=== PATIENT | male | born 1970 | race American Indian/Alaskan Native ===

== ENCOUNTER 2016-05-01 21:39 | Emergency (ER) | payer MEDICAID, OTHER ==
[2016-05-01 21:40] VITALS: BMI 26.6
[2016-05-01 21:54] VITALS: RESP 18
[2016-05-02 02:11] VITALS: TEMP 98.1
--- NOTE | 2016-05-02 03:41 | C.PDOC ---
History Of Present Illness Pt was BIBEMS due to public alcohol intoxication. Time Seen by Provider: 05/01/16 23:31 Chief Complaint (Nursing): Substance Abuse History Per: Patient, EMS History/Exam Limitations: intoxication Onset/Duration Of Symptoms: Unknown (today) Current Symptoms Are (Timing): Still Present Suicide/Self Injury Attempted (Context): None Modifying Factor(s): Alcohol Severity: Severe Past Medical History Reviewed: Historical Data, Nursing Documentation, Vital Signs Vital Signs: Last Vital Signs Temp 98.1 F 05/02/16 02:10 Pulse 92 H 05/02/16 02:10 Resp 18 05/02/16 02:10 BP 114/63 05/02/16 02:10 Pulse Ox 96 05/02/16 03:41 - Medical History PMH: Asthma, Bronchitis, CAD, CHF, HTN, Hypercholesterolemia, Mitral Valve Prolapse, Pancreatitis Other PMH: Alcohol abuse - [facility] Procedures DETOXIFICATION SERVICES FOR SUBSTANCE ABUSE TREATMENT (12/24/14) INJECT/INFUSE NEC (10/19/14) MEDICATION MANAGEMENT (03/05/15) MEDS MGMT FOR SUBSTANCE ABUSE TREATMENT, OTH REPL MED (03/05/15) Family History: States: Unknown Family Hx - Social History Hx Tobacco Use: No Hx Alcohol Use: Yes Hx Substance Use: No - Immunization History Hx Tetanus Toxoid Vaccination: No Hx Influenza Vaccination: No Hx Pneumococcal Vaccination: No Review Of Systems Review Of Systems: ROS cannot be obtained secondary to pt's inabilty to answer questions. Physical Exam - Physical Exam Appears: No Acute Distress, Other (AOB, intoxicated.) Skin: Normal Color, Warm, Dry Head: Atraumatic Eye(s): bilateral: PERRL Neck: Normal ROM, No Midline Cervical Tenderness, No Step Off Deformity, Supple Chest: Symmetrical, No Deformity Cardiovascular: Rhythm Regular Respiratory: Normal Breath Sounds, No Accessory Muscle Use Gastrointestinal/Abdominal: Soft, No Tenderness Extremity: Normal ROM, No Deformity Neurological/Psych: Slow To Respond With Command, Other (Moving all extremities) Gait: Unable To Assess ED Course And Treatment O2 Sat by Pulse Oximetry: 96 Pulse Ox Interpretation: Normal Reassessment Condition: Improved ED OBSERVATION Discharge: Yes Date of observation admission: 05/01/16 Time of observation admission: 23:45 - Observation admission statement Patient is being placed in observation because:: Alcohol intoxication. - Goals of Observation Goals of observation are:: Sobriety - Progress Note Progress Note: Pt was checked every 2 hours and remained stable throughout ED stay. BP improved. Pt is now clinically sober. AAOx3. Steady gait. Disposition Counseled Patient/Family Regarding: Diagnosis, Need For Followup - Disposition Referrals: [facility] at [facility] [Outside] Disposition: HOME/ ROUTINE Disposition Time: 06:10 Condition: IMPROVED Additional Instructions: Avoid alcohol. Take your medications as prescribed. Follow up with your doctor or in the clinic. Return to the ER if you develop worsening of symptoms or if you have any other concerns. Instructions: Abuse of Alcohol (ED) - Clinical Impression Clinical Impression: Alcohol abuse with intoxication, HTN (hypertension)
[2016-05-02 06:23] VITALS: BP 118/70; PULSE 74; O2SAT 98
== END 2016-05-02 06:24 | disposition home or self-care (01) ==
LOC: C.ER 21:39
DX: F10.120 Alcohol abuse with intoxication, uncomplicated (principal); Y90.9 Presence of alcohol in blood, level not specified; I10 Essential (primary) hypertension

== ENCOUNTER 2016-05-02 08:49 | Inpatient (IN) | payer MEDICAID ==
[2016-05-02 08:54] VITALS: BMI 26.6
--- NOTE | 2016-05-02 09:42 | C.PDOC ---
History Of Present Illness 45 y/o male with hx of alcohol abuse, requesting detox. pt sts last drink last night. pt denies any physical complaints,denies cp and sob. denies any injuries or falls. Time Seen by Provider: 05/02/16 09:27 Chief Complaint (Nursing): Substance Abuse Past Medical History Reviewed: Historical Data, Nursing Documentation, Vital Signs Vital Signs: Last Vital Signs Temp 98.5 F 05/02/16 13:43 Pulse 89 05/02/16 13:43 Resp 18 05/02/16 13:43 BP 153/83 H 05/02/16 13:43 Pulse Ox 95 05/02/16 13:43 - Medical History PMH: Asthma, Bronchitis, CAD, CHF, HTN, Hypercholesterolemia, Mitral Valve Prolapse, Pancreatitis Denies: Chronic Kidney Disease Surgical History: No Surg Hx - [facility] Procedures DETOXIFICATION SERVICES FOR SUBSTANCE ABUSE TREATMENT (12/24/14) INJECT/INFUSE NEC (10/19/14) MEDICATION MANAGEMENT (03/05/15) MEDS MGMT FOR SUBSTANCE ABUSE TREATMENT, OTH REPL MED (03/05/15) Family History: States: Unknown Family Hx - Social History Hx Tobacco Use: Yes Hx Alcohol Use: Yes Hx Substance Use: No - Immunization History Hx Tetanus Toxoid Vaccination: No Hx Influenza Vaccination: No Hx Pneumococcal Vaccination: No Review Of Systems Cardiovascular: Negative for: Chest Pain Respiratory: Negative for: Cough, Shortness of Breath, SOB with Excertion Gastrointestinal: Negative for: Nausea, Vomiting, Abdominal Pain Neurological: Negative for: Weakness, Numbness Physical Exam - Physical Exam Appears: Non-toxic, No Acute Distress, Other (clear speech) Skin: Normal Color, Dry Head: Atraumatic, Normacephalic Neck: Normal ROM Chest: Symmetrical, No Deformity, No Tenderness Cardiovascular: Rhythm Regular, No Murmur Respiratory: Normal Breath Sounds, No Accessory Muscle Use, No Rales, No Rhonchi , No Stridor, No Wheezing Gastrointestinal/Abdominal: Normal Exam, Bowel Sounds, Soft, No Tenderness, No Distention, No Guarding, No Rebound Extremity: No Tenderness, No Pedal Edema, No Calf Tenderness, No Swelling Neurological/Psych: Oriented x3, Normal Speech, Normal Motor, Normal Sensation ED Course And Treatment - Laboratory Results Result Diagrams: 05/02/16 10:06 05/02/16 10:06 O2 Sat by Pulse Oximetry: 95 Medical Decision Making Medical Decision Making: pt with no acute changes on head ct. pt ambulating with normal appearing gait here in ed. will d/c back to residence with pmd f/u. 5 pm pt is medically cleared for psychitric evaluation. Disposition Discussed With : Montserrat Daly Doctor Will See Patient In The: Hospital Counseled Patient/Family Regarding: Diagnosis, Need For Followup - Disposition Disposition: HOSPITALIZED Disposition Time: 17:12 Condition: STABLE - Clinical Impression Clinical Impression: Moderate alcohol dependence
[2016-05-02 10:19] LABS: BASO # 0.1 K/uL (0.0-0.2); BASO % 1.5 % (0.0-2.0); EOS # 0.1 K/uL (0.0-0.7); HEMATOCRIT 35.6 % (35.0-51.0); LYMPH % 24.2 % (20.0-40.0); MEAN CELL VOLUME 84.7 fL (80.0-94.0); MEAN CORPUSCULAR HEMOGLOBIN 27.6 pg (27.0-31.0); MEAN CORPUSCULAR HGB CONC 32.6 g/dL (33.0-37.0); MEAN PLATELET VOLUME 8.4 fL (7.2-11.7); MONO # 0.9 K/uL (0.0-0.8); MONO % 10.7 % (0.0-10.0); RED CELL DISTRIBUTION WIDTH 17.1 % (11.5-14.5); WHITE BLOOD COUNT 8.4 K/uL (4.8-10.8)
[2016-05-02 10:21] LABS: CHLORIDE 106 mmol/L (98-107); SODIUM 146 mmol/L (132-148)
[2016-05-02 10:22] LABS: POTASSIUM 3.8 mmol/L (3.6-5.2)
[2016-05-02 10:24] LABS: ALB/GLOB RATIO 1.2 (1.0-2.1); ALKALINE PHOSPHATASE 66 U/L (38-126); ALT/SGPT 81 U/L (21-72); AST/SGOT 102 U/L (17-59); BILIRUBIN,TOTAL 0.6 mg/dL (0.2-1.3); BLOOD UREA NITROGEN 7 mg/dL (9-20); CARBON DIOXIDE 27 mmol/L (22-30); GFR AFRICAN-AMERICAN > 60; GLUCOSE,RANDOM 82 mg/dL (75-110); TOTAL PROTEIN 7.1 g/dL (6.3-8.3)
[2016-05-02 10:25] LABS: ALCOHOL SERUM 278 mg/dl (0-10); CALCIUM 8.4 mg/dl (8.6-10.4)
[2016-05-02 10:26] LABS: RBC URINE 1 /hpf (0-3); URINE BILIRUBIN NEGATIVE (NEGATIVE); URINE BLOOD NEGATIVE (NEGATIVE); URINE COLOR Amber (YELLOW); URINE GLUCOSE (UA) NORMAL (Normal); URINE HYALINE CAST 0-2 /lpf (0-2); URINE KETONE TRACE mg/dL (NEGATIVE); URINE LEUKOCYTE ESTERASE NEG Leu/uL (Negative); URINE PROTEIN 2+ mg/dL (NEGATIVE); WBC URINE 1 /hpf (0-5)
[2016-05-02] MEDS ORDERED: Sodium Chloride 0.9% 1,000 ML IV ONE (10:46)
[2016-05-02] MEDS: Sodium Chloride 0.9% 1,000 ML IV SCH ×2 (12:00→21:51)
[2016-05-03] MEDS: Sodium Chloride 0.9% 1,000 ML IV SCH (06:48)
[2016-05-03] MEDS: Multiple Vitamins Tab PO SCH (09:35)
--- NOTE | 2016-05-03 18:34 | CP.PCM.CON ---
<Magdaleno Briggs - Last Filed: 05/03/16 18:20> History of Present Illness - History of Present Illness History of Present Illness: HPI: 45M PMHx CHF, HTN and CAD presented to detox for ETOH use. Patient currently under treatment for ETOH and medicine is consulted for management of CHF and HTN. Patient is currently not seen by any doctor and not taking any medications. Patient said he had cath and stress test done when he was 19, and was told he had heart failure. Patient drinks 3 pints of vodka for past 30 years on daily basis. Last drink Walter night. Currently he complains generalized weakness. He can tolerate 3 blocks of walking and 2 flights of stairs before getting SOB. Patient said his BLE gets mildly swollen intermittently. Patient also complains 8 episodes of NBNB vomiting since admission secondary to withdrawal. Currently denied shaking, orthopnea, chest pain, palpitations, abdominal pain, fever, chills. Patient had ECHO done in 2015 which showed EF of 15-20%. PMHx: see above PSHx: denied FMHx: father from heart attack at 22 y/o. mother has HTN and breast CA at 50 y/o, both sisters have breast CA at 40 y/o. 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 absent: Cough, Dyspnea - Gastrointestinal Gastrointestinal: Nausea, Vomiting. absent: Constipation, Diarrhea - Genitourinary Genitourinary: absent: Dysuria - Musculoskeletal Musculoskeletal: absent: Tingling - Integumentary Integumentary: absent: Dry Skin - Neurological Neurological: Weakness Past Patient History - Infectious Disease Hx of Infectious Diseases: None - Tetanus Immunizations Tetanus Immunization: Unknown - Past Medical History & Family History Past Medical History?: Yes - Past Social History Smoking Status: Heavy Smoker > 10 Cigarettes Daily - CARDIAC Hx Cardiac Disorders: Yes Hx Congestive Heart Failure: Yes Hx Hypercholesterolemia: Yes Hx Hypertension: Yes Hx Mitral Valve Prolapse: Yes - PULMONARY Hx Respiratory Disorders: Yes Hx Asthma: Yes Hx Bronchitis: Yes - NEUROLOGICAL Hx Neurological Disorder: No - HEENT Hx HEENT Problems: No - RENAL Hx Chronic Kidney Disease: No - ENDOCRINE/METABOLIC Hx Endocrine Disorders: No - HEMATOLOGICAL/ONCOLOGICAL Hx Blood Disorders: No - INTEGUMENTARY Hx Dermatological Problems: No - MUSCULOSKELETAL/RHEUMATOLOGICAL Hx Falls: No - GASTROINTESTINAL Hx Gastrointestinal Disorders: Yes Hx Pancreatitis: Yes - GENITOURINARY/GYNECOLOGICAL Hx Genitourinary Disorders: No - PSYCHIATRIC Hx Substance Use: Yes - SURGICAL HISTORY Hx Surgeries: Yes Other/Comment: Hx Left wrist surgery for cyst removal - ANESTHESIA Hx Anesthesia: Yes Hx Anesthesia Reactions: No Hx Malignant Hyperthermia: No Has any member of the family had a problem w/ anesthesia?: No Meds Allergies/Adverse Reactions: Allergies Allergy/AdvReac Type Severity Reaction Status Date / Time No Known Allergies Allergy Verified 05/02/16 10:00 - Medications Medications: Current Medications Carvedilol (Coreg) 6.25 mg PO Q12 [facility] Clonidine HCl (Catapres) 0.1 mg PO Q8H PRN PRN Reason: Withdrawal Symptoms Last Admin: 05/03/16 06:15 Dose: 0.1 mg Folic Acid (Folic Acid) 1 mg PO DAILY [facility] Last Admin: 05/03/16 09:35 Dose: 1 mg Hydroxyzine HCl (Atarax) 25 mg PO Q8H PRN PRN Reason: Anxiety Last Admin: 05/02/16 18:44 Dose: 25 mg Influenza Virus Vaccine (Afluria) 45 mcg IM .ONCE ONE Stop: 05/05/16 10:01 Lisinopril (Zestril) 10 mg PO DAILY [facility] Lorazepam (Ativan) 1 mg PO Q6H PRN PRN Reason: Withdrawal Symptoms Last Admin: 05/03/16 14:30 Dose: 1 mg Lorazepam (Ativan) 2 mg PO Q4 [facility] PRN Reason: Taper Stop: 05/08/16 07:44 Last Admin: 05/03/16 16:00 Dose: 2 mg Multivitamins (Hexavitamin) 1 tab PO DAILY [facility] Last Admin: 05/03/16 09:35 Dose: 1 tab Pneumococcal Polyvalent Vaccine (Pneumovax 23 Vaccine) 0.5 ml IM .ONCE ONE Stop: 05/05/16 10:01 Thiamine HCl (Vitamin B1 Tab) 50 mg PO DAILY [facility] Last Admin: 05/03/16 09:41 Dose: Not Given Trazodone HCl (Desyrel) 50 mg PO HS PRN PRN Reason: Insomnia Last Admin: 05/02/16 21:01 Dose: 50 mg Physical Exam - Constitutional Appears: Non-toxic, No Acute Distress - Head Exam Head Exam: NORMAL INSPECTION, NORMOCEPHALIC - Eye Exam Eye Exam: Normal appearance Pupil Exam: NORMAL ACCOMODATION - ENT Exam ENT Exam: Mucous Membranes Moist - Respiratory Exam Respiratory Exam: Clear to Auscultation Bilateral, NORMAL BREATHING PATTERN. absent: Rhonchi, Wheezes - Cardiovascular Exam Cardiovascular Exam: REGULAR RHYTHM, +S1, +S2. absent: Gallop, JVD, Rubs - GI/Abdominal Exam GI & Abdominal Exam: Normal Bowel Sounds, Soft. absent: Tenderness - Neurological Exam Neurological exam: Alert, Oriented x3 - Psychiatric Exam Psychiatric exam: Normal Affect, Normal Mood - Skin Skin Exam: Dry, Intact Results - Vital Signs Recent Vital Signs: Last Vital Signs Temp 97.9 F 05/03/16 16:16 Pulse 57 L 05/03/16 16:16 Resp 18 05/03/16 16:16 BP 160/107 H 05/03/16 16:16 Pulse Ox 98 05/03/16 16:16 - Labs Result Diagrams: 05/02/16 10:06 05/02/16 10:06 Assessment & Plan - Assessment and Plan (Free Text) Assessment: CHF 11/2015 ECHO showed 15-20% EF per report. Cardio Dr. Yañez consulted, help appreciated. Coreg 6.25mg PO BID. Lisinopril 10mg PO daily. F/U A1c. Transaminitis Likely secondary to ETOH. F/U CMP. Anemia F/U B12, folate and iron studies. HTN See plan for CHF. HLD Crestor 5mg PO HS. F/U lipid panel. ETOH use disorder Management as per psych. <Johan Santos - Last Filed: 05/03/16 20:57> Meds - Medications Medications: Current Medications Carvedilol (Coreg) 6.25 mg PO Q12 [facility] Last Admin: 05/03/16 19:25 Dose: 6.25 mg Clonidine HCl (Catapres) 0.1 mg PO Q8H PRN PRN Reason: Withdrawal Symptoms Last Admin: 05/03/16 06:15 Dose: 0.1 mg Folic Acid (Folic Acid) 1 mg PO DAILY [facility] Last Admin: 05/03/16 09:35 Dose: 1 mg Hydroxyzine HCl (Atarax) 25 mg PO Q8H PRN PRN Reason: Anxiety Last Admin: 05/02/16 18:44 Dose: 25 mg Influenza Virus Vaccine (Afluria) 45 mcg IM .ONCE ONE Stop: 05/05/16 10:01 Lisinopril (Zestril) 10 mg PO DAILY [facility] Lorazepam (Ativan) 1 mg PO Q6H PRN PRN Reason: Withdrawal Symptoms Last Admin: 05/03/16 14:30 Dose: 1 mg Lorazepam (Ativan) 2 mg PO Q4 [facility] PRN Reason: Taper Stop: 05/08/16 07:44 Last Admin: 05/03/16 16:00 Dose: 2 mg Multivitamins (Hexavitamin) 1 tab PO DAILY [facility] Last Admin: 05/03/16 09:35 Dose: 1 tab Pneumococcal Polyvalent Vaccine (Pneumovax 23 Vaccine) 0.5 ml IM .ONCE ONE Stop: 05/05/16 10:01 Rosuvastatin Calcium (Crestor) 5 mg PO HS [facility] Thiamine HCl (Vitamin B1 Tab) 50 mg PO DAILY [facility] Last Admin: 05/03/16 09:41 Dose: Not Given Trazodone HCl (Desyrel) 50 mg PO HS PRN PRN Reason: Insomnia Last Admin: 05/02/16 21:01 Dose: 50 mg Results - Vital Signs Recent Vital Signs: Last Vital Signs Temp 98 F 05/03/16 20:03 Pulse 118 H 05/03/16 20:03 Resp 18 05/03/16 20:03 BP 145/93 H 05/03/16 20:03 Pulse Ox 97 05/03/16 20:03 - Labs Result Diagrams: 05/02/16 10:06 05/02/16 10:06 Attending/Attestation - Attestation I have personally seen and examined this patient.: Yes I have fully participated in the care of the patient.: Yes I have reviewed all pertinent clinical information: Yes Notes (Text): Patient admitted for ETOH detox, has history of htn and CHF, medical service being consulted for management; Patient reports getting short of breath on walking 3 blocks; otherwise appears comfortable on exam, no JVD, lungs clear; Reports not having used cocaine in years despite positive urine tox last month; Patient was admitted in 11/2015 with hypertensive urgency; echo done at the time showed dilated cardiomyopathy with EF 15-20%; patient reports also having had coronary angiogram done many years ago that was reportedly unremarkable; Cardiomyopathy likely induced by ETOH and/or cocaine abuse; however, may still need workup for CAD; further, he may be candidate for lifevest until he can get ICD placed; Not currently in heart failure but will start meds to optimize cardiac status; HTN uncontrolled, hasn't been taking any meds recently; -start coreg 6.25 mg bid, lisinopril 10 mg daily -chlorthalidone 25 mg daily -avoid prn clonidine unless SBP persistently > 165 -low dose crestor -cardiology consult for lifevest -check A1c, lipid panel 05/03/16 20:41
[2016-05-04] MEDS: Multiple Vitamins Tab PO SCH (10:20)
[2016-05-04 10:40] LABS: BASO # 0.1 K/uL (0.0-0.2); BASO % 1.1 % (0.0-2.0); EOS # 0.2 K/uL (0.0-0.7); EOS % 1.9 % (0.0-4.0); HEMATOCRIT 38.5 % (35.0-51.0); LYMPH # 1.4 K/uL (1.0-4.3); LYMPH % 16.3 % (20.0-40.0); MEAN CELL VOLUME 84.8 fL (80.0-94.0); MEAN CORPUSCULAR HEMOGLOBIN 27.2 pg (27.0-31.0); MEAN PLATELET VOLUME 8.9 fL (7.2-11.7); MONO # 0.5 K/uL (0.0-0.8); NRBC % 0.1 % (0.0-2.0); RED CELL DISTRIBUTION WIDTH 17.5 % (11.5-14.5); WHITE BLOOD COUNT 8.6 K/uL (4.8-10.8)
[2016-05-04 10:46] LABS: CHLORIDE 98 mmol/L (98-107); SODIUM 135 mmol/L (132-148)
[2016-05-04 10:47] LABS: POTASSIUM 4.1 mmol/L (3.6-5.2)
[2016-05-04 10:48] LABS: IRON 61 ug/dL (49-181)
[2016-05-04 10:49] LABS: ALB/GLOB RATIO 1.1 (1.0-2.1); ALKALINE PHOSPHATASE 63 U/L (38-126); AST/SGOT 50 U/L (17-59); BLOOD UREA NITROGEN 14 mg/dL (9-20); CARBON DIOXIDE 25 mmol/L (22-30); GFR AFRICAN-AMERICAN > 60; GLUCOSE,RANDOM 90 mg/dL (75-110); TOTAL PROTEIN 7.7 g/dL (6.3-8.3)
[2016-05-04 10:50] LABS: ALT/SGPT 59 U/L (21-72); CALCIUM 9.7 mg/dl (8.6-10.4)
[2016-05-04 11:18] LABS: CHOLESTEROL 394 mg/dL (0-199)
[2016-05-04 11:55] LABS: FOLATE 10.9 ng/mL
--- NOTE | 2016-05-04 14:22 | CP.PCM.PN ---
Subjective - Date & Time of Evaluation Date of Evaluation: 05/05/15 Time of Evaluation: 10:00 - Subjective Subjective: PGY2 on medicine Dr. Santos: Pt seen and examined at bedside. Pt complains mild lightheadedness this morning. No other complaints at this time. Objective - Vital Signs/Intake and Output Vital Signs (last 24 hours): Temp Pulse Resp BP Pulse Ox 97.2 F L 89 20 135/92 H 97 05/04/16 13:54 05/04/16 13:54 05/04/16 13:54 05/04/16 13:54 05/04/16 13:54 - Medications Medications: Current Medications Carvedilol (Coreg) 6.25 mg PO Q12 [facility] Last Admin: 05/04/16 10:20 Dose: 6.25 mg Chlorthalidone (Hygroton) 25 mg PO DAILY [facility] Last Admin: 05/04/16 10:21 Dose: 25 mg Clonidine HCl (Catapres) 0.1 mg PO Q8H PRN PRN Reason: Withdrawal Symptoms Last Admin: 05/04/16 05:13 Dose: 0.1 mg Folic Acid (Folic Acid) 1 mg PO DAILY [facility] Last Admin: 05/04/16 10:20 Dose: 1 mg Hydroxyzine HCl (Atarax) 25 mg PO Q8H PRN PRN Reason: Anxiety Last Admin: 05/02/16 18:44 Dose: 25 mg Influenza Virus Vaccine (Afluria) 45 mcg IM .ONCE ONE Stop: 05/05/16 10:01 Lisinopril (Zestril) 10 mg PO DAILY [facility] Last Admin: 05/04/16 10:21 Dose: 10 mg Lorazepam (Ativan) 1 mg PO Q6H PRN PRN Reason: Withdrawal Symptoms Last Admin: 05/03/16 14:30 Dose: 1 mg Lorazepam (Ativan) 2 mg PO Q4 [facility] PRN Reason: Taper Stop: 05/08/16 07:44 Last Admin: 05/04/16 12:45 Dose: 2 mg Multivitamins (Hexavitamin) 1 tab PO DAILY [facility] Last Admin: 05/04/16 10:20 Dose: 1 tab Pneumococcal Polyvalent Vaccine (Pneumovax 23 Vaccine) 0.5 ml IM .ONCE ONE Stop: 05/05/16 10:01 Rosuvastatin Calcium (Crestor) 5 mg PO HS [facility] Last Admin: 05/03/16 21:12 Dose: 5 mg Thiamine HCl (Vitamin B1 Tab) 50 mg PO DAILY [facility] Last Admin: 05/04/16 10:21 Dose: 50 mg Trazodone HCl (Desyrel) 50 mg PO HS PRN PRN Reason: Insomnia Last Admin: 05/03/16 21:13 Dose: 50 mg - Labs Labs: 05/04/16 10:31 05/04/16 10:31 - Constitutional Appears: Non-toxic, No Acute Distress - Head Exam Head Exam: NORMAL INSPECTION, NORMOCEPHALIC - Eye Exam Eye Exam: Normal appearance Pupil Exam: NORMAL ACCOMODATION - Respiratory Exam Respiratory Exam: Clear to Ausculation Bilateral, NORMAL BREATHING PATTERN. absent: Rhonchi, Wheezes - Cardiovascular Exam Cardiovascular Exam: REGULAR RHYTHM, +S1, +S2. absent: Gallop, Rubs - GI/Abdominal Exam GI & Abdominal Exam: Soft, Normal Bowel Sounds - Extremities Exam Extremities Exam: absent: Pedal Edema - Neurological Exam Neurological Exam: Alert, Awake, Oriented x3 - Psychiatric Exam Psychiatric exam: Normal Mood - Skin Skin Exam: Intact Assessment and Plan - Assessment and Plan (Free Text) Assessment: CHF 11/2015 ECHO showed 15-20% EF per report. Cardio Dr. Yañez consulted, help appreciated. Coreg 6.25mg PO BID. Lisinopril 10mg PO daily. Per Dr. Yañez, will have LifeVest fitted for patient. F/U A1c. Transaminitis Likely secondary to ETOH. Currently resolved. Continue monitoring. Anemia Resolved. TIBC decreased at 226. B12, folate, Iron and % saturation WNL. HTN See plan for CHF. HLD Crestor 5mg PO HS. Cholesterol 394, LDL 143, HDL 175. ETOH use disorder Management as per psych.
--- NOTE | 2016-05-04 17:25 | CP.PCM.CON ---
Past Patient History - Infectious Disease Hx of Infectious Diseases: None - Tetanus Immunizations Tetanus Immunization: Unknown - Past Medical History & Family History Past Medical History?: Yes - Past Social History Smoking Status: Heavy Smoker > 10 Cigarettes Daily - CARDIAC Hx Cardiac Disorders: Yes Hx Congestive Heart Failure: Yes Hx Hypercholesterolemia: Yes Hx Hypertension: Yes Hx Mitral Valve Prolapse: Yes - PULMONARY Hx Respiratory Disorders: Yes Hx Asthma: Yes Hx Bronchitis: Yes - NEUROLOGICAL Hx Neurological Disorder: No - HEENT Hx HEENT Problems: No - RENAL Hx Chronic Kidney Disease: No - ENDOCRINE/METABOLIC Hx Endocrine Disorders: No - HEMATOLOGICAL/ONCOLOGICAL Hx Blood Disorders: No - INTEGUMENTARY Hx Dermatological Problems: No - MUSCULOSKELETAL/RHEUMATOLOGICAL Hx Falls: No - GASTROINTESTINAL Hx Gastrointestinal Disorders: Yes Hx Pancreatitis: Yes - GENITOURINARY/GYNECOLOGICAL Hx Genitourinary Disorders: No - PSYCHIATRIC Hx Substance Use: Yes - SURGICAL HISTORY Hx Surgeries: Yes Other/Comment: Hx Left wrist surgery for cyst removal - ANESTHESIA Hx Anesthesia: Yes Hx Anesthesia Reactions: No Hx Malignant Hyperthermia: No Has any member of the family had a problem w/ anesthesia?: No Meds Allergies/Adverse Reactions: Allergies Allergy/AdvReac Type Severity Reaction Status Date / Time No Known Allergies Allergy Verified 05/02/16 10:00 - Medications Medications: Current Medications Carvedilol (Coreg) 6.25 mg PO Q12 [facility] Last Admin: 05/04/16 10:20 Dose: 6.25 mg Chlorthalidone (Hygroton) 25 mg PO DAILY [facility] Last Admin: 05/04/16 10:21 Dose: 25 mg Clonidine HCl (Catapres) 0.1 mg PO Q8H PRN PRN Reason: Withdrawal Symptoms Last Admin: 05/04/16 05:13 Dose: 0.1 mg Folic Acid (Folic Acid) 1 mg PO DAILY [facility] Last Admin: 05/04/16 10:20 Dose: 1 mg Hydroxyzine HCl (Atarax) 25 mg PO Q8H PRN PRN Reason: Anxiety Last Admin: 05/04/16 15:52 Dose: 25 mg Influenza Virus Vaccine (Afluria) 45 mcg IM .ONCE ONE Stop: 05/05/16 10:01 Lisinopril (Zestril) 10 mg PO DAILY [facility] Last Admin: 05/04/16 10:21 Dose: 10 mg Lorazepam (Ativan) 1 mg PO Q6H PRN PRN Reason: Withdrawal Symptoms Last Admin: 05/03/16 14:30 Dose: 1 mg Lorazepam (Ativan) 2 mg PO Q4 [facility] PRN Reason: Taper Stop: 05/08/16 07:44 Last Admin: 05/04/16 15:52 Dose: 2 mg Multivitamins (Hexavitamin) 1 tab PO DAILY [facility] Last Admin: 05/04/16 10:20 Dose: 1 tab Pneumococcal Polyvalent Vaccine (Pneumovax 23 Vaccine) 0.5 ml IM .ONCE ONE Stop: 05/05/16 10:01 Rosuvastatin Calcium (Crestor) 5 mg PO HS [facility] Last Admin: 05/03/16 21:12 Dose: 5 mg Thiamine HCl (Vitamin B1 Tab) 50 mg PO DAILY [facility] Last Admin: 05/04/16 10:21 Dose: 50 mg Trazodone HCl (Desyrel) 50 mg PO HS PRN PRN Reason: Insomnia Last Admin: 05/03/16 21:13 Dose: 50 mg Results - Vital Signs Recent Vital Signs: Last Vital Signs Temp 98.7 F 05/04/16 15:52 Pulse 86 05/04/16 15:52 Resp 20 05/04/16 15:52 BP 143/94 H 05/04/16 15:52 Pulse Ox 97 05/04/16 15:52 - Labs Result Diagrams: 05/04/16 10:31 05/04/16 10:31 Labs: Laboratory Results - last 24 hr 05/04/16 10:31 WBC 8.6 RBC 4.53 Hgb 12.3 Hct 38.5 MCV 84.8 MCH 27.2 MCHC 32.0 L RDW 17.5 H Plt Count 399 MPV 8.9 Neut % (Auto) 74.7 Lymph % (Auto) 16.3 L [place] % (Auto) 6.0 Eos % (Auto) 1.9 Baso % (Auto) 1.1 Neut # 6.4 Lymph # 1.4 [place] # 0.5 Eos # 0.2 Baso # 0.1 Sodium 135 Potassium 4.1 Chloride 98 Carbon Dioxide 25 Anion Gap 16 BUN 14 Creatinine 1.0 Est GFR ( Amer) > 60 Est GFR (Non-Af Amer) > 60 Random Glucose 90 Calcium 9.7 Iron 61 TIBC 226 L % Saturation 27 Total Bilirubin 1.0 AST 50 ALT 59 Alkaline Phosphatase 63 Total Protein 7.7 Albumin 4.0 Globulin 3.7 Albumin/Globulin Ratio 1.1 Triglycerides 73 D Cholesterol 394 H LDL Cholesterol Direct 143 H HDL Cholesterol 175 H Vitamin B12 709 Folate 10.9
--- NOTE | 2016-05-04 19:18 | PCM.PSYCH ---
Initial Psychiatric Evaluation - Initial Psychiatric Evaluation Legal Status: Capacity Chief Complaint (in patient's own words): I need to get sober. Patient's Reaction to Hospitalization: I'm glad I can get help. History of Present Illness and Precipitating Events: Pt is a single male who lives with his mother, and one of his children. Pt started drinking alcohol at age 15 and it almost immediately became a problem. Pt's longest period of sobriety was when he was at the [employer] Pt denies use or abuse of any other substances. Pt's father before the pt was born. Pt has 2 older sisters. Pt went up to 12th grade. 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 Pt's older sister is schizophrenic. All 8 of pt's maternal uncles are alcoholics. Pt has no history. Pt was arrested for theft, but is now off probation. Pt. has never been hospitalized in a psych. facility, but has been treated for depression. Pt has hypertension and congestive heart failure. Current Medications: Active Medications Generic Name Dose Route Start Last Admin Trade Name William PRN Reason Stop Dose Admin Carvedilol 6.25 mg 05/03/16 18:15 05/04/16 10:20 Coreg PO 6.25 mg Q12 BETINA Administration Chlorthalidone 25 mg 05/04/16 10:00 05/04/16 10:21 Hygroton PO 25 mg DAILY BETINA Administration Clonidine HCl 0.1 mg 05/02/16 18:00 05/04/16 05:13 Catapres PO 0.1 mg Q8H PRN Administration Withdrawal Symptoms Folic Acid 1 mg 05/03/16 10:00 05/04/16 10:20 Folic Acid PO 1 mg DAILY BETINA Administration Hydroxyzine HCl 25 mg 05/02/16 18:04 05/04/16 15:52 Atarax PO 25 mg Q8H PRN Administration Anxiety Influenza Virus Vaccine 45 mcg 05/05/16 10:00 Afluria IM 05/05/16 10:01 .ONCE ONE Lisinopril 10 mg 05/04/16 10:00 05/04/16 10:21 Zestril PO 10 mg DAILY BETINA Administration Lorazepam 1 mg 05/02/16 17:59 05/03/16 14:30 Ativan PO 1 mg Q6H PRN Administration Withdrawal Symptoms Lorazepam 2 mg 05/03/16 07:45 05/04/16 15:52 Ativan PO 05/08/16 07:44 2 mg Q4 BETINA Administration Taper Multivitamins 1 tab 05/03/16 10:00 05/04/16 10:20 Hexavitamin PO 1 tab DAILY BETINA Administration Pneumococcal Polyvalent Vaccine 0.5 ml 05/05/16 10:00 Pneumovax 23 Vaccine IM 05/05/16 10:01 .ONCE ONE Rosuvastatin Calcium 5 mg 05/03/16 22:00 05/03/16 21:12 Crestor PO 5 mg HS BETINA Administration Thiamine HCl 50 mg 05/03/16 10:00 05/04/16 10:21 Vitamin B1 Tab PO 50 mg DAILY BETINA Administration Trazodone HCl 50 mg 05/02/16 18:01 05/03/16 21:13 Desyrel PO 50 mg HS PRN Administration Insomnia Past Psychiatric History - Past Psychiatric History Prior Professional Help: See HPI Pertinent Medical Hx (Current Medical&Sleep Prob, Allergies): Allergies Allergy/AdvReac Type Severity Reaction Status Date / Time No Known Allergies Allergy Verified 05/02/16 10:00 Atorvastatin [Lipitor] 20 mg PO DAILY #14 tab 03/12/16 Lisinopril [Zestril] 20 mg PO DAILY #14 tab 03/12/16 Metoprolol Tartrate [Lopressor] 12.5 mg PO Q12 #14 tab 03/12/16 amLODIPine [Norvasc] 10 mg PO DAILY #14 tab 03/12/16 hydroCHLOROthiazide [Microzide] 12.5 mg PO DAILY #14 cap 03/12/16 Aspirin [Aspirin Chewable] 81 mg PO DAILY 03/22/16 Carvedilol [Coreg] 12.5 mg PO DAILY 03/22/16 Famotidine [Pepcid] 20 mg PO Q12 #20 tab 04/21/16 Metoclopramide [Reglan] 10 mg PO Q8 #6 tab 04/21/16 Ondansetron [Zofran] 4 mg PO Q8H #10 tab 04/21/16 Review of Systems - Constitutional Constitutional: Malaise - EENT Eyes: UNREMARKABLE Ears: UNREMARKABLE Nose/Mouth/Throat: UNREMARKABLE - Cardiovascular Additional comments: CHF and HTN - Respiratory Respiratory: Dyspnea - Gastrointestinal Gastrointestinal: UNREMARKABLE - Genitourinary Genitourinary: UNREMARKABLE - Reproductive: Male Reproductive:Male: UNREMARKABLE - Musculoskeletal Musculoskeletal: UNREMARKABLE
--- NOTE | 2016-05-04 19:28 | PCM.PSYCH ---
Initial Psychiatric Evaluation - Initial Psychiatric Evaluation Legal Status: Capacity Chief Complaint (in patient's own words): I need to get sober. Patient's Reaction to Hospitalization: I'm glad I can get help. History of Present Illness and Precipitating Events: Pt is a single male who lives with his mother, and one of his children. Pt started drinking alcohol at age 15 and it almost immediately became a problem. Pt's longest period of sobriety was when he was at the [employer] Pt denies use or abuse of any other substances. Pt's father before the pt was born. Pt has 2 older sisters. Pt went up to 12th grade. 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 Pt's older sister is schizophrenic. All 8 of pt's maternal uncles are alcoholics. Pt has no history. Pt was arrested for theft, but is now off probation. Pt. has never been hospitalized in a psych. facility, but has been treated for depression. Pt has hypertension and congestive heart failure. Current Medications: Active Medications Generic Name Dose Route Start Last Admin Trade Name William PRN Reason Stop Dose Admin Carvedilol 6.25 mg 05/03/16 18:15 05/04/16 10:20 Coreg PO 6.25 mg Q12 BETINA Administration Chlorthalidone 25 mg 05/04/16 10:00 05/04/16 10:21 Hygroton PO 25 mg DAILY BETINA Administration Clonidine HCl 0.1 mg 05/02/16 18:00 05/04/16 05:13 Catapres PO 0.1 mg Q8H PRN Administration Withdrawal Symptoms Folic Acid 1 mg 05/03/16 10:00 05/04/16 10:20 Folic Acid PO 1 mg DAILY BETINA Administration Hydroxyzine HCl 25 mg 05/02/16 18:04 05/04/16 15:52 Atarax PO 25 mg Q8H PRN Administration Anxiety Influenza Virus Vaccine 45 mcg 05/05/16 10:00 Afluria IM 05/05/16 10:01 .ONCE ONE Lisinopril 10 mg 05/04/16 10:00 05/04/16 10:21 Zestril PO 10 mg DAILY BETINA Administration Lorazepam 1 mg 05/02/16 17:59 05/03/16 14:30 Ativan PO 1 mg Q6H PRN Administration Withdrawal Symptoms Lorazepam 2 mg 05/03/16 07:45 05/04/16 15:52 Ativan PO 05/08/16 07:44 2 mg Q4 BETINA Administration Taper Multivitamins 1 tab 05/03/16 10:00 05/04/16 10:20 Hexavitamin PO 1 tab DAILY BETINA Administration Pneumococcal Polyvalent Vaccine 0.5 ml 05/05/16 10:00 Pneumovax 23 Vaccine IM 05/05/16 10:01 .ONCE ONE Rosuvastatin Calcium 5 mg 05/03/16 22:00 05/03/16 21:12 Crestor PO 5 mg HS BETINA Administration Thiamine HCl 50 mg 05/03/16 10:00 05/04/16 10:21 Vitamin B1 Tab PO 50 mg DAILY BETINA Administration Trazodone HCl 50 mg 05/02/16 18:01 05/03/16 21:13 Desyrel PO 50 mg HS PRN Administration Insomnia Past Psychiatric History - Past Psychiatric History Prior Professional Help: See HPI Pertinent Medical Hx (Current Medical&Sleep Prob, Allergies): Allergies Allergy/AdvReac Type Severity Reaction Status Date / Time No Known Allergies Allergy Verified 05/02/16 10:00 Atorvastatin [Lipitor] 20 mg PO DAILY #14 tab 03/12/16 Lisinopril [Zestril] 20 mg PO DAILY #14 tab 03/12/16 Metoprolol Tartrate [Lopressor] 12.5 mg PO Q12 #14 tab 03/12/16 amLODIPine [Norvasc] 10 mg PO DAILY #14 tab 03/12/16 hydroCHLOROthiazide [Microzide] 12.5 mg PO DAILY #14 cap 03/12/16 Aspirin [Aspirin Chewable] 81 mg PO DAILY 03/22/16 Carvedilol [Coreg] 12.5 mg PO DAILY 03/22/16 Famotidine [Pepcid] 20 mg PO Q12 #20 tab 04/21/16 Metoclopramide [Reglan] 10 mg PO Q8 #6 tab 04/21/16 Ondansetron [Zofran] 4 mg PO Q8H #10 tab 04/21/16 Review of Systems - Constitutional Constitutional: Malaise - EENT Eyes: UNREMARKABLE Ears: UNREMARKABLE Nose/Mouth/Throat: UNREMARKABLE - Cardiovascular Additional comments: CHF and HTN - Respiratory Respiratory: Dyspnea - Gastrointestinal Gastrointestinal: UNREMARKABLE - Genitourinary Genitourinary: UNREMARKABLE - Reproductive: Male Reproductive:Male: UNREMARKABLE - Musculoskeletal Musculoskeletal: Arthralgias, Myalgias - Integumentary Integumentary: UNREMARKABLE - Neurological Neurological: UNREMARKABLE - Psychiatric Psychiatric: Anxiety Mental Status Examination - Personal Presentation Personal Presentation: Looks older than stated age - Affect Affect: Constricted - Motor Activity Motor Activity: Calm - Reliability in Providing Information Reliability in Providing Information: Good - Speech Speech: Organized - Mood Mood: Anxious - Formal Thought Process Formal Thought Process: No Impairment - Cognitive Functions Orientation: Person, Place, Situation, Time Sensorium: Alert Attention/Concentration: Attentive Abstract Thinking: [place] Estimate of Intelligence: Average Judgement: Intact, as evidence by: Good judgement Memory: Recent intact, as evidence by: Ability to recall events of the day, Remote intact, as evidenced by: Abilit to recall sig. life events - Risk Risk: Withdrawal - Strength & Assets Inventory Strength & Assets Inventory: Intelligence, Education, Employment history DSM 5 DX - DSM 5 DSM 5 Diagnosis: Alcohol withdrawal, severe. Alcohol use disorder, severe. CHF. HTN. Alcohol withdrawal, Librium taper; group milieu, recreational; individual supportive psychotherapy; CBT and [place] Alcohol use disorder; group milieu, recreational; individual supportive psychotherapy; CBT and [place] CHF as per medical consult HTN as per medical consult - Recommended/Plan of Treatment Projected ELOS: 5 days Prognosis: good Discharge Plan and Discharge Criteria: no acute withdrawal symptoms - Smoking Cessation Smoking Cessation Initiated: No
--- NOTE | 2016-05-04 21:25 | PCM.PYCHPN ---
Psychiatric Progress Note - Psychiatric Progress Note Patient Chief Complaint: my appetite is not very good amd I am wobbly on my feet Problems Identified/Issues Discussed: PAWS aftercare Medical Problems: nothing acute Diagnostic Results: reviewed DSM 5 Symptoms Update: asthenia Medication Change: Yes (librium taper) Medical Record Reviewed: Yes Mental Status Examination - Cognitive Function Orientation: Place, Situation, Time Memory: Intact Attention: WNL Concentration: WNL Association: WNL Fund of Knowledge: WNL - Mood Mood: Anxious - Affect Affect: Constricted - Speech Speech: Appropriate - Formal Thought Process Formal Thought Process: No Impairment - Suicidal Ideation Suicidal Ideation: No - Homicidal Ideation Homicidal Ideation: No Goal/Treatment Plan - Goal/Treatment Plan Need for Continued Stay: Remain at risks for inpatient hospitalization, Discharge may exacerbated symptoms, Severe functional impairment Progress Toward Problem(s) and Goals/Treatment Plan: alcohol withdrawal librium taper groups supportive psychotherapy alcohol use disorder groups supportive psychotherapy [facility] CBT Estimated Date of D/C: 05/06/16 - Smoking Cessation Smoking Cessation Initiated: No
[2016-05-05] MEDS: Multiple Vitamins Tab PO SCH (09:05)
--- NOTE | 2016-05-05 09:15 | CP.PCM.PN ---
Subjective - Date & Time of Evaluation Date of Evaluation: 05/05/16 Time of Evaluation: 08:00 - Subjective Subjective: Cardiology Note- Dr. Yañez' Patient was seen and examined at bedside. Patient reports no acute complaints at this time. No events overnight. Objective - Vital Signs/Intake and Output Vital Signs (last 24 hours): Temp Pulse Resp BP Pulse Ox 97.8 F 95 H 18 131/91 H 96 05/05/16 09:07 05/05/16 09:07 05/05/16 09:07 05/05/16 09:07 05/05/16 09:07 - Medications Medications: Current Medications Carvedilol (Coreg) 6.25 mg PO Q12 [facility] Last Admin: 05/05/16 09:04 Dose: 6.25 mg Chlorthalidone (Hygroton) 25 mg PO DAILY [facility] Last Admin: 05/05/16 09:04 Dose: 25 mg Clonidine HCl (Catapres) 0.1 mg PO Q8H PRN PRN Reason: Withdrawal Symptoms Last Admin: 05/04/16 05:13 Dose: 0.1 mg Folic Acid (Folic Acid) 1 mg PO DAILY [facility] Last Admin: 05/05/16 09:05 Dose: 1 mg Hydroxyzine HCl (Atarax) 25 mg PO Q8H PRN PRN Reason: Anxiety Last Admin: 05/04/16 15:52 Dose: 25 mg Influenza Virus Vaccine (Afluria) 45 mcg IM .ONCE ONE Stop: 05/05/16 10:01 Lisinopril (Zestril) 10 mg PO DAILY [facility] Last Admin: 05/05/16 09:05 Dose: 10 mg Lorazepam (Ativan) 1 mg PO Q6H PRN PRN Reason: Withdrawal Symptoms Last Admin: 05/03/16 14:30 Dose: 1 mg Lorazepam (Ativan) 1 mg PO Q4 [facility] PRN Reason: Taper Stop: 05/08/16 07:44 Last Admin: 05/05/16 09:04 Dose: 1 mg Multivitamins (Hexavitamin) 1 tab PO DAILY [facility] Last Admin: 05/05/16 09:05 Dose: 1 tab Pneumococcal Polyvalent Vaccine (Pneumovax 23 Vaccine) 0.5 ml IM .ONCE ONE Stop: 05/05/16 10:01 Rosuvastatin Calcium (Crestor) 5 mg PO HS [facility] Last Admin: 05/04/16 21:05 Dose: 5 mg Thiamine HCl (Vitamin B1 Tab) 50 mg PO DAILY [facility] Last Admin: 05/05/16 09:05 Dose: 50 mg Trazodone HCl (Desyrel) 50 mg PO HS PRN PRN Reason: Insomnia Last Admin: 05/03/16 21:13 Dose: 50 mg - Labs Labs: 05/04/16 10:31 05/04/16 10:31 - Constitutional Appears: Non-toxic, No Acute Distress - Head Exam Head Exam: ATRAUMATIC, NORMAL INSPECTION, NORMOCEPHALIC - Eye Exam Pupil Exam: NORMAL ACCOMODATION, PERRL - ENT Exam ENT Exam: Mucous Membranes Moist - Respiratory Exam Respiratory Exam: Clear to Ausculation Bilateral, NORMAL BREATHING PATTERN. absent: Prolonged Expiratory Phase, Rales, Rhonchi, Wheezes - Cardiovascular Exam Cardiovascular Exam: REGULAR RHYTHM, +S1, +S2 - GI/Abdominal Exam GI & Abdominal Exam: Soft, Normal Bowel Sounds. absent: Tenderness, Diminished Bowel Sounds, Hypoactive Bowel Sounds, Pulsatile Mass - Extremities Exam Extremities Exam: Normal Capillary Refill, Normal Inspection - Neurological Exam Neurological Exam: Alert, Awake, Oriented x3 - Psychiatric Exam Psychiatric exam: Normal Affect, Normal Mood - Skin Skin Exam: Dry, Intact, Normal Color, Warm Assessment and Plan (1) Chronic systolic heart failure Assessment & Plan: Echo- 11/19/15- LV is mildly dilated. LV systolic function is severely impaired. EF is 15-20%. LA mildly dilated. Continue Coreg 6.25mg PO Q12h, Chlorthalidone 25mg PO Daily, Lisinopril 10mg PO Daily Patient will need a life vest as prophylaxis against sudden cardiac . Patient was instructed to followup with Dr. Yañez outpatient for likely ICD placement. case and plan discussed with Dr. Yañez. Status: Acute
[2016-05-05] MEDS ORDERED: Influenza Virus Vaccine 45 mcg/0.5 ml Syr IM ONE (10:00)
[2016-05-05] MEDS ORDERED: Pneumococcal 23-Valent Vaccine IM ONE (10:00)
[2016-05-05 10:16] LABS: BASO # 0.1 K/uL (0.0-0.2); BASO % 1.2 % (0.0-2.0); EOS # 0.2 K/uL (0.0-0.7); EOS % 2.3 % (0.0-4.0); LYMPH # 1.6 K/uL (1.0-4.3); LYMPH % 17.1 % (20.0-40.0); MEAN CELL VOLUME 84.5 fL (80.0-94.0); MEAN CORPUSCULAR HEMOGLOBIN 27.7 pg (27.0-31.0); MEAN CORPUSCULAR HGB CONC 32.8 g/dL (33.0-37.0); MEAN PLATELET VOLUME 9.7 fL (7.2-11.7); MONO # 0.6 K/uL (0.0-0.8); MONO % 5.9 % (0.0-10.0); RED CELL DISTRIBUTION WIDTH 16.7 % (11.5-14.5); WHITE BLOOD COUNT 9.4 K/uL (4.8-10.8)
[2016-05-05 10:26] LABS: CHLORIDE 99 mmol/L (98-107); SODIUM 135 mmol/L (132-148)
[2016-05-05 10:27] LABS: POTASSIUM 3.6 mmol/L (3.6-5.2)
[2016-05-05 10:29] LABS: ALB/GLOB RATIO 1.1 (1.0-2.1); ALKALINE PHOSPHATASE 59 U/L (38-126); ALT/SGPT 69 U/L (21-72); AST/SGOT 73 U/L (17-59); BILIRUBIN,TOTAL 0.9 mg/dL (0.2-1.3); BLOOD UREA NITROGEN 14 mg/dL (9-20); CALCIUM 9.2 mg/dl (8.6-10.4); CARBON DIOXIDE 25 mmol/L (22-30); GFR AFRICAN-AMERICAN > 60; GLUCOSE,RANDOM 124 mg/dL (75-110); TOTAL PROTEIN 7.5 g/dL (6.3-8.3)
--- NOTE | 2016-05-05 10:43 | CP.PCM.PN ---
Subjective - Date & Time of Evaluation Date of Evaluation: 05/05/16 Time of Evaluation: 07:45 - Subjective Subjective: Internal medicine progress note for Dr. Maddie Plummer, PGY-1 Pt S & E at bedside. Pt complaining of lightheadedness and dizziness upon standing up, reports that he got lightheaded when in the bathroom overnight, had to stabilize himself on the floor before getting up. Denies N/V/F/C, SOB, CP, abdominal pain, is tolerating a diet- asked if he can have work note for limitations. Objective - Vital Signs/Intake and Output Vital Signs (last 24 hours): Temp Pulse Resp BP Pulse Ox 97.8 F 95 H 18 131/91 H 96 05/05/16 09:07 05/05/16 09:07 05/05/16 09:07 05/05/16 09:07 05/05/16 09:07 - Medications Medications: Current Medications Carvedilol (Coreg) 6.25 mg PO Q12 [facility] Last Admin: 05/05/16 09:04 Dose: 6.25 mg Chlorthalidone (Hygroton) 25 mg PO DAILY [facility] Last Admin: 05/05/16 09:04 Dose: 25 mg Clonidine HCl (Catapres) 0.1 mg PO Q8H PRN PRN Reason: Withdrawal Symptoms Last Admin: 05/04/16 05:13 Dose: 0.1 mg Folic Acid (Folic Acid) 1 mg PO DAILY [facility] Last Admin: 05/05/16 09:05 Dose: 1 mg Hydroxyzine HCl (Atarax) 25 mg PO Q8H PRN PRN Reason: Anxiety Last Admin: 05/04/16 15:52 Dose: 25 mg Lisinopril (Zestril) 10 mg PO DAILY [facility] Last Admin: 05/05/16 09:05 Dose: 10 mg Lorazepam (Ativan) 1 mg PO Q6H PRN PRN Reason: Withdrawal Symptoms Last Admin: 05/03/16 14:30 Dose: 1 mg Lorazepam (Ativan) 1 mg PO Q4 BETINA PRN Reason: Taper Stop: 05/08/16 07:44 Last Admin: 05/05/16 09:04 Dose: 1 mg Multivitamins (Hexavitamin) 1 tab PO DAILY [facility] Last Admin: 05/05/16 09:05 Dose: 1 tab Rosuvastatin Calcium (Crestor) 5 mg PO HS [facility] Last Admin: 05/04/16 21:05 Dose: 5 mg Thiamine HCl (Vitamin B1 Tab) 50 mg PO DAILY [facility] Last Admin: 05/05/16 09:05 Dose: 50 mg Trazodone HCl (Desyrel) 100 mg PO HS PRN PRN Reason: Insomnia - Labs Labs: 05/05/16 10:09 05/05/16 10:09 - Constitutional Appears: Non-toxic, No Acute Distress - Head Exam Head Exam: ATRAUMATIC, NORMAL INSPECTION, NORMOCEPHALIC - Eye Exam Eye Exam: EOMI, Normal appearance, PERRL Pupil Exam: NORMAL ACCOMODATION, PERRL - ENT Exam ENT Exam: Mucous Membranes Moist, Normal Exam - Neck Exam Neck Exam: Full ROM, Normal Inspection - Respiratory Exam Respiratory Exam: Clear to Ausculation Bilateral, NORMAL BREATHING PATTERN. absent: Rales, Rhonchi, Wheezes - Cardiovascular Exam Cardiovascular Exam: REGULAR RHYTHM, +S1, +S2 - GI/Abdominal Exam GI & Abdominal Exam: Soft, Normal Bowel Sounds. absent: Tenderness - Extremities Exam Extremities Exam: Normal Inspection. absent: Pedal Edema, Tenderness - Back Exam Back Exam: Full ROM, NORMAL INSPECTION - Neurological Exam Neurological Exam: Alert, Awake, CN II-XII Intact, Oriented x3 - Psychiatric Exam Psychiatric exam: Normal Affect, Normal Mood - Skin Skin Exam: Dry, Intact, Normal Color, Warm Assessment and Plan - Assessment and Plan (Free Text) Assessment: CHF 11/2015 ECHO showed 15-20% EF per report. Coreg 6.25mg PO BID. Lisinopril 10mg PO daily. A1c 4.9 [facility] Cardio following- [facility] pending Transaminitis Likely secondary to ETOH. Currently resolved. Continue monitoring. Anemia - resolved TIBC decreased at 226. Iron and % saturation WNL. B12 709 Folate 10.9 HTN See plan for CHF. HLD Crestor 5mg PO HS. Cholesterol 392, LDL 143, HDL 175. ETOH use disorder Management as per psych. Dispo: Awaiting life[facility] DW cardio re: work restrictions FU orthostatic VS DW attending
--- NOTE | 2016-05-05 15:06 | PCM.PYCHPN ---
Psychiatric Progress Note - Psychiatric Progress Note Patient Chief Complaint: "Not sleeping too good" Problems Identified/Issues Discussed: Pt was seen, chart reviewed and case discussed. Psychiatric education and support given. Pt was treated here 8 months ago for alcohol use disorder and has returned for relapse. At this time, pt reports detox is going well, however had difficulty sleeping the last few nights. Pt's plan is to attend [facility] immediately following discharge. Medication Change: Yes (librium taper) Medical Record Reviewed: Yes Mental Status Examination - Cognitive Function Orientation: Place, Situation, Time Memory: Intact Attention: WNL Concentration: WNL Association: WNL Fund of Knowledge: WNL - Mood Mood: Anxious - Affect Affect: Constricted - Speech Speech: Appropriate - Formal Thought Process Formal Thought Process: No Impairment - Suicidal Ideation Suicidal Ideation: No - Homicidal Ideation Homicidal Ideation: No Goal/Treatment Plan - Goal/Treatment Plan Need for Continued Stay: Remain at risks for inpatient hospitalization, Discharge may exacerbated symptoms, Severe functional impairment Progress Toward Problem(s) and Goals/Treatment Plan: 1. Alcohol withdrawal - Follow ativan taper protocol -Supportive psychotherapy, CBT, [place] -Continue group activities 2. Insomnia -increase trazodone to 100mg PO QHS Estimated Date of D/C: 05/06/16
[2016-05-06] MEDS: Multiple Vitamins Tab PO SCH (10:11)
--- NOTE | 2016-05-06 11:02 | CP.PCM.PN ---
Addendum entered and electronically signed by Sylvia Plummer DO 05/06/16 16:22: Pt with systolic CHF. Original Note: <Sylvia Plummer - Last Filed: 05/06/16 12:51> Subjective - Date & Time of Evaluation Date of Evaluation: 05/06/16 Time of Evaluation: 09:20 - Subjective Subjective: Internal medicine progress note for Hospitalist service-Sylvia Plummer, PGY-1 Pt S & E at bedside. Pt feels much improved today, states that his gait is better, his dizziness is improving, has not felt unbalanced or had falls over last 24H. Denies N/V/F/C, SOB, CP, abdominal pain, slept well, is tolerating diet. Pt asking for work limitation note again. Was told limitations would come from cardiology. Objective - Vital Signs/Intake and Output Vital Signs (last 24 hours): Temp Pulse Resp BP Pulse Ox 97.3 F L 93 H 16 118/77 99 05/06/16 09:00 05/06/16 09:00 05/06/16 09:00 05/06/16 09:00 05/06/16 09:00 - Medications Medications: Current Medications Carvedilol (Coreg) 6.25 mg PO Q12 [facility] Last Admin: 05/06/16 10:11 Dose: 6.25 mg Chlorthalidone (Hygroton) 25 mg PO DAILY [facility] Last Admin: 05/06/16 10:11 Dose: 25 mg Clonidine HCl (Catapres) 0.1 mg PO Q8H PRN PRN Reason: Withdrawal Symptoms Last Admin: 05/04/16 05:13 Dose: 0.1 mg Folic Acid (Folic Acid) 1 mg PO DAILY [facility] Last Admin: 05/06/16 10:11 Dose: 1 mg Hydroxyzine HCl (Atarax) 25 mg PO Q8H PRN PRN Reason: Anxiety Last Admin: 05/04/16 15:52 Dose: 25 mg Lisinopril (Zestril) 10 mg PO DAILY [facility] Last Admin: 05/06/16 10:11 Dose: 10 mg Lorazepam (Ativan) 1 mg PO Q6H PRN PRN Reason: Withdrawal Symptoms Last Admin: 05/06/16 10:11 Dose: 1 mg Lorazepam (Ativan) 1 mg PO Q8 [facility] PRN Reason: Taper Stop: 05/08/16 07:44 Last Admin: 05/06/16 04:07 Dose: Not Given Multivitamins (Hexavitamin) 1 tab PO DAILY [facility] Last Admin: 05/06/16 10:11 Dose: 1 tab Rosuvastatin Calcium (Crestor) 5 mg PO HS [facility] Last Admin: 05/05/16 21:46 Dose: 5 mg Thiamine HCl (Vitamin B1 Tab) 50 mg PO DAILY [facility] Last Admin: 05/06/16 10:11 Dose: 50 mg Trazodone HCl (Desyrel) 100 mg PO HS PRN PRN Reason: Insomnia Last Admin: 05/05/16 21:46 Dose: 100 mg - Labs Labs: 05/05/16 10:09 05/05/16 10:09 - Constitutional Appears: Non-toxic, No Acute Distress - Head Exam Head Exam: ATRAUMATIC, NORMAL INSPECTION, NORMOCEPHALIC - Eye Exam Eye Exam: EOMI, Normal appearance, PERRL Pupil Exam: NORMAL ACCOMODATION, PERRL - ENT Exam ENT Exam: Mucous Membranes Moist, Normal Exam - Neck Exam Neck Exam: Full ROM, Normal Inspection - Respiratory Exam Respiratory Exam: Clear to Ausculation Bilateral, NORMAL BREATHING PATTERN. absent: Rales, Rhonchi, Wheezes, Stridor - Cardiovascular Exam Cardiovascular Exam: REGULAR RHYTHM, +S1, +S2 - GI/Abdominal Exam GI & Abdominal Exam: Soft, Normal Bowel Sounds. absent: Tenderness - Extremities Exam Extremities Exam: Full ROM, Normal Inspection. absent: Pedal Edema, Tenderness - Neurological Exam Neurological Exam: Alert, Awake, CN II-XII Intact, Oriented x3 - Psychiatric Exam Psychiatric exam: Normal Affect, Normal Mood - Skin Skin Exam: Dry, Intact, Normal Color, Warm Assessment and Plan - Assessment and Plan (Free Text) Assessment: CHF 11/2015 ECHO showed 15-20% EF per report. Coreg 6.25mg PO BID. Lisinopril 10mg PO daily. A1c 4.9 Orthostatic BP 111/71 lying, 118/77 sitting, 121/78 standing Cardio following- Lifevest pending Transaminitis 2/2 ETOH abuse AST 73 ALT 69 Improving Continue monitoring Anemia - resolved H/H 12.5/38 TIBC decreased at 226. Iron and % saturation WNL. B12 709 Folate 10.9 HTN See plan for CHF. HLD Crestor 5mg PO HS. Cholesterol 392, LDL 143, HDL 175. ETOH use disorder Management as per psych. Dispo: Awaiting lifevest ETOH abuse mgmt as per psych Work note restriction letter as per cardio DW attending <Justine Marinelli V - Last Filed: 05/07/16 07:58> Objective - Vital Signs/Intake and Output Vital Signs (last 24 hours): Temp Pulse Resp BP Pulse Ox 97.5 F L 71 18 117/79 95 05/07/16 06:12 05/07/16 06:12 05/07/16 06:12 05/07/16 06:12 05/07/16 06:12 - Medications Medications: Current Medications Carvedilol (Coreg) 6.25 mg PO Q12 [facility] Last Admin: 05/06/16 21:03 Dose: 6.25 mg Chlorthalidone (Hygroton) 25 mg PO DAILY [facility] Last Admin: 05/06/16 10:11 Dose: 25 mg Clonidine HCl (Catapres) 0.1 mg PO Q8H PRN PRN Reason: Withdrawal Symptoms Last Admin: 05/04/16 05:13 Dose: 0.1 mg Folic Acid (Folic Acid) 1 mg PO DAILY [facility] Last Admin: 05/06/16 10:11 Dose: 1 mg Hydroxyzine HCl (Atarax) 25 mg PO Q8H PRN PRN Reason: Anxiety Last Admin: 05/04/16 15:52 Dose: 25 mg Lisinopril (Zestril) 10 mg PO DAILY [facility] Last Admin: 05/06/16 10:11 Dose: 10 mg Lorazepam (Ativan) 1 mg PO Q6H PRN PRN Reason: Withdrawal Symptoms Last Admin: 05/06/16 10:11 Dose: 1 mg Lorazepam (Ativan) 1 mg PO Q8 [facility] PRN Reason: Taper Stop: 05/08/16 07:44 Last Admin: 05/07/16 06:23 Dose: Not Given Multivitamins (Hexavitamin) 1 tab PO DAILY [facility] Last Admin: 05/06/16 10:11 Dose: 1 tab Rosuvastatin Calcium (Crestor) 5 mg PO HS [facility] Last Admin: 05/06/16 21:03 Dose: 5 mg Thiamine HCl (Vitamin B1 Tab) 50 mg PO DAILY [facility] Last Admin: 05/06/16 10:11 Dose: 50 mg Trazodone HCl (Desyrel) 100 mg PO HS PRN PRN Reason: Insomnia Last Admin: 05/06/16 21:03 Dose: 100 mg - Labs Labs: 05/05/16 10:09 05/05/16 10:09 Attending/Attestation - Attestation I have personally seen and examined this patient.: Yes I have fully participated in the care of the patient.: Yes I have reviewed all pertinent clinical information, including history, physical exam and plan: Yes Notes (Text): This is late computer entry for 05/06/16. Patient seen, examined and case discussed with day-time resident. Patient reported mild lightheadedness today. Patient completed orthostatic blood pressures which showed he was not orthostatic. Patient seen at bedside with resident. Patient tolerating breakfast. Patient is awaiting Lifevest. Patient instructed to establish care at the [facility] ([phone]) when he is stable by psych from detox during hospitalization. Assessment/Plan 1) Chronic systolic heart failure Patient is not in acute exacerbation. Echo (11/19/15): left ventricle is mildly dilated, mild concentric left ventriculer hypertrophy, levt ventricle systolic function is severely impaired. EF: 15-20%, left atrium is mildly dilated, mitral, aortic, tricupsid valves are normal, trace to mild mitral regurgitation and trace tricupsid regurgitation Coreg 6.25mg PO bid Lisinopril 10mg PO daily Chorthalidone 25mg PO daily Crestor 5mg PO qHS Patient is off aspirin; patient is currently here for alcohol detox. Cardiology (Dr. Yañez) on board-->patient is pending lifevest for sudden cardiac prophylaxis; Life vest requires repeat echocardiogram. Awaiting repeat echocardiogram Fasting Lipid Panel: elevated total cholestrol; elevated LDL; and elevated HDL ( cardioprotective) [id number]:4.9 Patient requesting work restriction note; advised as per cardiology, but also noted patient needs to establish care with primary care doctor for further monitoring once stabilized Thyroid studies within normal 2) Transaminitis Mild transaminitis Patient is on statin, monitor LFTs while on statin Hepatitis panel is negative Order for Ab US 3) Anemia Chronic H/H stable Iron stores and saturation within normal TIBC is mildly low B12 709 Folate 10.9 Likely due to alcohol effect on bone marrow suppression 4) Hypertension Coreg 6.25mg PO bid Lisinopril 10mg PO daily Chrthalidone 25mg Po daily 5) Hyperlipidemia Crestor 5mg PO HS. Cholesterol 392, LDL 143, and HDL 175 (cardioprotective) Note: Patient is on statin while mild transaminitis; monitor 6) ETOH use disorder Ativan taper (Day 4) PRN Ativan on board Vitamin B1 100mg PO daily Folic 1mg PO daily MVI 1 tab PO daily
--- NOTE | 2016-05-06 13:37 | CP.PCM.PN ---
Subjective - Date & Time of Evaluation Date of Evaluation: 05/06/16 Time of Evaluation: 13:15 - Subjective Subjective: Cardiology Note- Dr. Yañez' service Patient was seen and examined at bedside. Patient reports no acute complaints at this time. No events overnight per nursing. Discussed instructions with patient again to followup as outpatient with Dr. Yañez in his [facility] office. Nursing reports that the [employer] public relations representative was here yesterday but has not come back with the Life Vest. Objective - Vital Signs/Intake and Output Vital Signs (last 24 hours): Temp Pulse Resp BP Pulse Ox 97.3 F L 93 H 16 118/77 99 05/06/16 09:00 05/06/16 09:00 05/06/16 09:00 05/06/16 09:00 05/06/16 09:00 - Medications Medications: Current Medications Carvedilol (Coreg) 6.25 mg PO Q12 [facility] Last Admin: 05/06/16 10:11 Dose: 6.25 mg Chlorthalidone (Hygroton) 25 mg PO DAILY [facility] Last Admin: 05/06/16 10:11 Dose: 25 mg Clonidine HCl (Catapres) 0.1 mg PO Q8H PRN PRN Reason: Withdrawal Symptoms Last Admin: 05/04/16 05:13 Dose: 0.1 mg Folic Acid (Folic Acid) 1 mg PO DAILY [facility] Last Admin: 05/06/16 10:11 Dose: 1 mg Hydroxyzine HCl (Atarax) 25 mg PO Q8H PRN PRN Reason: Anxiety Last Admin: 05/04/16 15:52 Dose: 25 mg Lisinopril (Zestril) 10 mg PO DAILY [facility] Last Admin: 05/06/16 10:11 Dose: 10 mg Lorazepam (Ativan) 1 mg PO Q6H PRN PRN Reason: Withdrawal Symptoms Last Admin: 05/06/16 10:11 Dose: 1 mg Lorazepam (Ativan) 1 mg PO Q8 [facility] PRN Reason: Taper Stop: 05/08/16 07:44 Last Admin: 05/06/16 13:31 Dose: 1 mg Multivitamins (Hexavitamin) 1 tab PO DAILY [facility] Last Admin: 05/06/16 10:11 Dose: 1 tab Rosuvastatin Calcium (Crestor) 5 mg PO HS [facility] Last Admin: 05/05/16 21:46 Dose: 5 mg Thiamine HCl (Vitamin B1 Tab) 50 mg PO DAILY [facility] Last Admin: 05/06/16 10:11 Dose: 50 mg Trazodone HCl (Desyrel) 100 mg PO HS PRN PRN Reason: Insomnia Last Admin: 05/05/16 21:46 Dose: 100 mg - Labs Labs: 05/05/16 10:09 05/05/16 10:09 - Constitutional Appears: Non-toxic, No Acute Distress - Head Exam Head Exam: ATRAUMATIC, NORMAL INSPECTION, NORMOCEPHALIC - Eye Exam Pupil Exam: NORMAL ACCOMODATION, PERRL - ENT Exam ENT Exam: Mucous Membranes Moist - Respiratory Exam Respiratory Exam: Clear to Ausculation Bilateral, NORMAL BREATHING PATTERN. absent: Prolonged Expiratory Phase, Rales, Rhonchi, Wheezes - Cardiovascular Exam Cardiovascular Exam: REGULAR RHYTHM, +S1, +S2 - GI/Abdominal Exam GI & Abdominal Exam: Soft, Normal Bowel Sounds. absent: Tenderness, Diminished Bowel Sounds, Hyperactive Bowel Sounds, Hypoactive Bowel Sounds - Extremities Exam Extremities Exam: Normal Capillary Refill, Normal Inspection - Neurological Exam Neurological Exam: Alert, Awake, Oriented x3 - Psychiatric Exam Psychiatric exam: Normal Affect, Normal Mood - Skin Skin Exam: Dry, Intact, Normal Color, Warm Assessment and Plan (1) Chronic systolic heart failure Assessment & Plan: Dilated Cardiomyopathy Echo- 11/19/15- LV is mildly dilated. LV systolic function is severely impaired. EF is 15-20%. LA mildly dilated. Continue Coreg 6.25mg PO Q12h, Chlorthalidone 25mg PO Daily, Lisinopril 10mg PO Daily Patient was instructed to followup with Dr. Yañez outpatient for possible ICD placement. Will repeat echo, as required as per [employer] public relations representative. Discussed with patient about work limitations. case and plan discussed with Dr. Yañez. Status: Acute Status: Acute
[2016-05-06 14:06] VITALS: RESP 18
--- NOTE | 2016-05-06 15:57 | PCM.PYCHPN ---
Psychiatric Progress Note - Psychiatric Progress Note Patient seen today, length of contact: 15 minutes Patient Chief Complaint: "I feel a lot better" Problems Identified/Issues Discussed: Pt was seen, chart reviewed and case discussed. At this time, pt states he is feeling much better, sleep has improved. Reports minimal withdrawal symptoms. Denies chest pain, shortness of breath, suicidal ideation, homicidal ideation, and hallucinations. Aftercare plan: [facility] Psychoeducation and support given. Medication Change: No Medical Record Reviewed: Yes Mental Status Examination - Cognitive Function Orientation: Place, Situation, Time Memory: Intact Attention: WNL Concentration: WNL Association: WNL Fund of Knowledge: WNL - Mood Mood: Anxious - Affect Affect: Constricted - Speech Speech: Appropriate - Formal Thought Process Formal Thought Process: No Impairment - Suicidal Ideation Suicidal Ideation: No - Homicidal Ideation Homicidal Ideation: No Goal/Treatment Plan - Goal/Treatment Plan Need for Continued Stay: Remain at risks for inpatient hospitalization, Discharge may exacerbated symptoms, Severe functional impairment Progress Toward Problem(s) and Goals/Treatment Plan: 1. Alcohol withdrawal - Follow ativan taper protocol -Supportive psychotherapy, CBT, NM -Continue group activities 2. Insomnia -trazodone to 100mg PO QHS Estimated Date of D/C: 05/07/16
--- NOTE | 2016-05-07 10:01 | CP.PCM.PN ---
Subjective - Date & Time of Evaluation Date of Evaluation: 05/07/16 Time of Evaluation: 07:35 - Subjective Subjective: Cardiology Note- Dr. Yañez' service Patient was seen and examined at bedside. Patient reports no acute complaints at this time. No events overnight. Objective - Vital Signs/Intake and Output Vital Signs (last 24 hours): Temp Pulse Resp BP Pulse Ox 97.5 F L 79 18 142/82 98 05/07/16 08:45 05/07/16 08:45 05/07/16 08:45 05/07/16 08:45 05/07/16 08:45 - Medications Medications: Current Medications Carvedilol (Coreg) 6.25 mg PO Q12 [facility] Last Admin: 05/06/16 21:03 Dose: 6.25 mg Chlorthalidone (Hygroton) 25 mg PO DAILY [facility] Last Admin: 05/06/16 10:11 Dose: 25 mg Clonidine HCl (Catapres) 0.1 mg PO Q8H PRN PRN Reason: Withdrawal Symptoms Last Admin: 05/04/16 05:13 Dose: 0.1 mg Folic Acid (Folic Acid) 1 mg PO DAILY [facility] Last Admin: 05/06/16 10:11 Dose: 1 mg Hydroxyzine HCl (Atarax) 25 mg PO Q8H PRN PRN Reason: Anxiety Last Admin: 05/04/16 15:52 Dose: 25 mg Lisinopril (Zestril) 10 mg PO DAILY [facility] Last Admin: 05/06/16 10:11 Dose: 10 mg Lorazepam (Ativan) 1 mg PO Q6H PRN PRN Reason: Withdrawal Symptoms Last Admin: 05/06/16 10:11 Dose: 1 mg Lorazepam (Ativan) 1 mg PO Q24H [facility] PRN Reason: Taper Stop: 05/08/16 07:44 Last Admin: 05/07/16 06:23 Dose: Not Given Multivitamins (Hexavitamin) 1 tab PO DAILY [facility] Last Admin: 05/06/16 10:11 Dose: 1 tab Rosuvastatin Calcium (Crestor) 5 mg PO HS [facility] Last Admin: 05/06/16 21:03 Dose: 5 mg Thiamine HCl (Vitamin B1 Tab) 50 mg PO DAILY [facility] Last Admin: 05/06/16 10:11 Dose: 50 mg Trazodone HCl (Desyrel) 100 mg PO HS PRN PRN Reason: Insomnia Last Admin: 05/06/16 21:03 Dose: 100 mg - Labs Labs: 05/05/16 10:09 05/05/16 10:09 - Constitutional Appears: Non-toxic, No Acute Distress - Head Exam Head Exam: ATRAUMATIC, NORMAL INSPECTION, NORMOCEPHALIC - Eye Exam Pupil Exam: NORMAL ACCOMODATION, PERRL - ENT Exam ENT Exam: Mucous Membranes Moist - Respiratory Exam Respiratory Exam: Clear to Ausculation Bilateral, NORMAL BREATHING PATTERN. absent: Rales, Rhonchi, Wheezes, Respiratory Distress - Cardiovascular Exam Cardiovascular Exam: REGULAR RHYTHM, +S1, +S2 - GI/Abdominal Exam GI & Abdominal Exam: Soft, Normal Bowel Sounds. absent: Tenderness, Diminished Bowel Sounds, Hypoactive Bowel Sounds - Extremities Exam Extremities Exam: Normal Capillary Refill, Normal Inspection - Neurological Exam Neurological Exam: Alert, Awake, Oriented x3 - Psychiatric Exam Psychiatric exam: Normal Affect, Normal Mood - Skin Skin Exam: Dry, Intact, Normal Color, Warm Assessment and Plan (1) Chronic systolic heart failure Assessment & Plan: Dilated Cardiomyopathy Echo- 11/19/15- LV is mildly dilated. LV systolic function is severely impaired. EF is 15-20%. LA mildly dilated. Continue Coreg 6.25mg PO Q12h, Chlorthalidone 25mg PO Daily, Lisinopril 10mg PO Daily Patient was instructed to followup with Dr. Yañez outpatient Echo- 05/07/16- normal LV systolic function. Diastolic dysfunction. Trace MR. Trace TR. Dilated LA. EF 52% Patient will not need a lifevest at this time. case and plan discussed with Dr. Yañez. Status: Acute
--- NOTE | 2016-05-07 10:26 | US ---
HISTORY: transaminitis COMPARISON: None. TECHNIQUE: Sonographic evaluation of the abdomen. FINDINGS: LIVER: Measures 17.3 cm. Normal echogenicity of the liver parenchyma. No mass. No intrahepatic bile duct dilatation. GALLBLADDER: Unremarkable. No gallstones. COMMON BILE DUCT: Measures 3 mm. No stones. No dilatation. PANCREAS: Mildly hypoechoic. Questionable significance. Please correlate with laboratory evaluation to rule out pancreatitis. No peripancreatic fluid. RIGHT KIDNEY: Measures 11.1cm. Normal echogenicity. No calculus, mass, or hydronephrosis. LEFT KIDNEY: Measures 10.7cm. Normal echogenicity. No calculus, mass, or hydronephrosis. SPLEEN: Normal in size and contour. No mass. AORTA: No aneurysmal dilatation. IVC: Unremarkable. OTHER FINDINGS: None. IMPRESSION: Mildly hypoechoic pancreas, questionable significance. No peripancreatic fluid. Please correlate with laboratory evaluation to rule out pancreatitis.
[2016-05-07] MEDS: Multiple Vitamins Tab PO SCH (10:34)
--- NOTE | 2016-05-07 10:56 | CARD ---
APPROVED REPORT EXAM: Two-dimensional and M-mode echocardiogram with Doppler and color Doppler. Other Information Quality : GoodRhythm : INDICATION Dizziness and Vertigo Dyspnea Syncope Congestive Heart Failure ALCOHOL ABUSE RISK FACTORS Hypertension M-Mode DIMENSIONS RVDd2.66 (2.1-3.2cm)Left Atrium (MM)4.49 (2.5-4.0cm) IVSd1.44 (0.7-1.1cm)Aortic Root3.08 (2.2-3.7cm) LVDd6.25 (4.0-5.6cm)Aortic Cusp Exc.2.19 (1.5-2.0cm) PWd1.37 (0.7-1.1cm)FS (%) 28 % LVDs4.53 (2.0-3.8cm)LVEF (%)52 (>50%) Aortic Valve AoV Peak Bjhzweej981.5cm/Pamela Peak GR.8mmHg Mitral Valve MV E Unblauuo46.5cm/sMV A Efbeyafl28.0cm/sE/A ratio0.7 TDI E/Lateral E'0.0E/Medial E'0.0 Tricuspid Valve TR Peak Iudjnppc180jg/sTR Peak Gr.[id number] LEFT VENTRICLE The left ventricle is normal size. There is normal left ventricular wall thickness. The left ventricular function is normal. The left ventricular ejection fraction is within the normal range. There is normal LV segmental wall motion. Transmitral Doppler flow pattern is abnormal. RIGHT VENTRICLE The right ventricle is normal size. ATRIA The left atrium is mildly dilated. The right atrium size is normal. AORTIC VALVE The aortic valve is normal in structure. MITRAL VALVE Mitral regurgitation is trace. TRICUSPID VALVE There is trace tricuspid regurgitation. <Conclusion> Normal LV systolic function. Diastolic dysfunction. Trace MR. Trace TR. Dilated LA.
--- NOTE | 2016-05-07 11:34 | PCM.PYCHDC ---
Mental Status Examination - Mental Status Examination Orientation: Person, Place, Situation, Time Memory: Intact Mood: Neutral Affect: Broad Speech: Appropriate Attention: WNL Concentration: WNL Association: WNL Fund of Knowledge: WNL Formal Thought Process: No Impairment Suicidal Ideation: No Current Homicidal Ideation?: No Discharge Summary - Discharge Note Reason for Hospitalization: Alcohol detox Consultations:: List each consultation separately and include: 1. Reason for request. 2. Findings. 3. Follow-up Consultations: medicine is consulted for CHF - help appreciated Summary of Hospital Course include:: 1. Description of specific treatment plan utilized for patients during their course of treatmen. 2. Summarize the time- course for resolution of acute symptoms and/or regressed behaviors. 3. Describe issues identified and worked on during hospitalization. 4. Describe medication utilized. 5. Describe medical problems identified and treated. 6. Reassessment of suicide risk Summary of Hospital Course: Pt seen, chart reviewed and case discussed with staff. Pt was admitted for alcohol withdrawal and placed on ativan taper. Pt feels much better and is ready for discharge. Aftercare: [facility] on 05/27 and daily AA meetings. Pt attended groups and activities IN, CBT used Ativan detox completed, responded well to treatment He was also seen and worked up extensively by medicine due to his significant CHF and they ended up clearing him. - Final Diagnosis (DSM 5) Condition upon Discharge: STABLE DSM 5: Alcohol withdrawal Alcohol use d/o - severe CHF Disposition: HOME/ ROUTINE Follow-up Treatment Plan: Continue medications below Attend aftercare: [facility] 05/27 Use relapse prevention skills Attend AA daily Return to ER if experience suicidal ideation, homicidal ideation, hallucinations Prescriptions/Medication Reconciliation: Aspirin [Aspirin Chewable] 81 mg PO DAILY #30 chew Carvedilol [Coreg] 6.25 mg PO Q12 #60 tab traZODone [Desyrel] 100 mg PO HS PRN #30 tab PRN Reason: Insomnia Chlorthalidone [Hygroton] 25 mg PO DAILY #30 tab Lisinopril [Zestril] 10 mg PO DAILY #30 tab - Smoking Cessation Smoking Cessation Medication prescribed: No - Antipsychotic Medications Pt discharged on 2 or more routine antipsychotic medications: No
--- NOTE | 2016-05-07 13:04 | CP.PCM.PN ---
Addendum entered and electronically signed by Sylvia Plummer DO 05/07/16 13:14: Pt medically stable for discharge from detox unit with instructions to continue Aspirin 81mg daily, Continue statin, continue Coreg. Addendum entered and electronically signed by Sylvia Plummer DO 05/07/16 13:09: Echo w/findings of normal LV systolic function, diastolic dysfunction, trace MR , trace TR, dilated LA. Patient does not need lifevest as per Dr. Yañez. Ok to d/c home per cardiology. Original Note: <Sylvia Plummer - Last Filed: 05/07/16 13:04> Subjective - Date & Time of Evaluation Date of Evaluation: 05/07/16 Time of Evaluation: 07:00 - Subjective Subjective: Internal medicine progress note for Hospitalist service-Sylvia Plummer, PGY-1 Pt S & E at bedside. Pt reports much improvement in symptoms- no longer dizzy, feels that gait is normal, no falls or loss of balance, no headache. Is eating/sleeping ok. Denies N/V/F/C, SOB, CP, palpitations, abdominal pain, any other complaints. Objective - Vital Signs/Intake and Output Vital Signs (last 24 hours): Temp Pulse Resp BP Pulse Ox 97.5 F L 79 18 142/82 98 05/07/16 08:45 05/07/16 08:45 05/07/16 08:45 05/07/16 08:45 05/07/16 08:45 - Medications Medications: Current Medications Aspirin (Aspirin Chewable) 81 mg PO DAILY [facility] Last Admin: 05/07/16 11:28 Dose: 81 mg Carvedilol (Coreg) 6.25 mg PO Q12 [facility] Last Admin: 05/07/16 10:34 Dose: 6.25 mg Chlorthalidone (Hygroton) 25 mg PO DAILY [facility] Last Admin: 05/07/16 10:35 Dose: 25 mg Clonidine HCl (Catapres) 0.1 mg PO Q8H PRN PRN Reason: Withdrawal Symptoms Last Admin: 05/04/16 05:13 Dose: 0.1 mg Folic Acid (Folic Acid) 1 mg PO DAILY [facility] Last Admin: 05/07/16 10:34 Dose: 1 mg Hydroxyzine HCl (Atarax) 25 mg PO Q8H PRN PRN Reason: Anxiety Last Admin: 05/04/16 15:52 Dose: 25 mg Lisinopril (Zestril) 10 mg PO DAILY [facility] Last Admin: 05/07/16 10:34 Dose: 10 mg Lorazepam (Ativan) 1 mg PO Q6H PRN PRN Reason: Withdrawal Symptoms Last Admin: 05/06/16 10:11 Dose: 1 mg Lorazepam (Ativan) 1 mg PO Q24H [facility]INA PRN Reason: Taper Stop: 05/08/16 07:44 Last Admin: 05/07/16 10:34 Dose: 1 mg Multivitamins (Hexavitamin) 1 tab PO DAILY [facility] Last Admin: 05/07/16 10:34 Dose: 1 tab Rosuvastatin Calcium (Crestor) 5 mg PO HS [facility] Last Admin: 05/06/16 21:03 Dose: 5 mg Thiamine HCl (Vitamin B1 Tab) 50 mg PO DAILY [facility] Last Admin: 05/07/16 10:34 Dose: 50 mg Trazodone HCl (Desyrel) 100 mg PO HS PRN PRN Reason: Insomnia Last Admin: 05/06/16 21:03 Dose: 100 mg - Labs Labs: 05/05/16 10:09 05/05/16 10:09 - Constitutional Appears: Non-toxic, No Acute Distress - Head Exam Head Exam: ATRAUMATIC, NORMAL INSPECTION, NORMOCEPHALIC - Eye Exam Eye Exam: EOMI, Normal appearance, PERRL Pupil Exam: NORMAL ACCOMODATION, PERRL - ENT Exam ENT Exam: Mucous Membranes Moist, Normal Exam - Neck Exam Neck Exam: Full ROM, Normal Inspection - Respiratory Exam Respiratory Exam: Clear to Ausculation Bilateral, NORMAL BREATHING PATTERN. absent: Rales, Rhonchi, Wheezes, Stridor - Cardiovascular Exam Cardiovascular Exam: REGULAR RHYTHM, +S1, +S2 - GI/Abdominal Exam GI & Abdominal Exam: Soft, Normal Bowel Sounds. absent: Tenderness - Extremities Exam Extremities Exam: Full ROM, Normal Inspection. absent: Pedal Edema, Tenderness - Back Exam Back Exam: Full ROM, NORMAL INSPECTION - Neurological Exam Neurological Exam: Alert, Awake, CN II-XII Intact, Oriented x3 - Psychiatric Exam Psychiatric exam: Normal Affect, Normal Mood - Skin Skin Exam: Dry, Intact, Normal Color, Warm Assessment and Plan - Assessment and Plan (Free Text) Assessment: CHF 11/2015 ECHO showed 15-20% EF per report. Cont Coreg 6.25mg PO BID. Lisinopril 10mg PO daily Cont crestor Started ASA daily A1c 4.9 BP 142/82 Cardio following- Lifevest pending, FU echo Transaminitis 2/2 ETOH abuse AST 73 ALT 69 Improving Ab U/S w/Mildly hypoechoic pancreas, questionable significance. No peripancreatic fluid. Please correlate with laboratory evaluation to rule out pancreatitis. Pt completing ETOH rehab, will go to outpatient rehab for ETOH abuse on 05/28 Continue monitoring Anemia - resolved H/H 12.5 TIBC decreased at 226. Iron and % saturation WNL. B12 709 Folate 10.9 HTN Cont Chlorthalidone Cont Lisinopril HLD Crestor 5mg PO HS. Cholesterol 392, LDL 143, HDL 175. ETOH use disorder Management as per psych. Dispo: Awaiting lifevest FU Echo ETOH abuse mgmt as per psych Work note restriction letter as per cardio DW attending <Justine Marinelli V - Last Filed: 05/07/16 19:35> Objective - Vital Signs/Intake and Output Vital Signs (last 24 hours): Temp Pulse Resp BP Pulse Ox 98 F 87 18 137/76 97 05/07/16 13:30 05/07/16 13:30 05/07/16 13:30 05/07/16 13:30 05/07/16 13:30 - Labs Labs: 05/05/16 10:09 05/05/16 10:09 Attending/Attestation - Attestation I have personally seen and examined this patient.: Yes I have fully participated in the care of the patient.: Yes I have reviewed all pertinent clinical information, including history, physical exam and plan: Yes Notes (Text): Patient seen, examined and case discussed with day-time resident. Patient seen at bedside. Patient denies acute symptoms. Patient completed repeat echocardiogram, wherein there was improvement in EF, and as per cardiology, will not need LifeVest at this time. Patient is medically stable. Per cardiology, patient does not need lifevest. Patient advised to follow-up at the [facility] ([phone]). Attempted to patient at home via cell and home (mother's numbers); will re- attempt: will need lisinopril and chorliathdone in addition to the aspirin, crestor, and coreg he was discharged with. Assessment/Plan 1) Chronic systolic heart failure; Cardiomyopathy Patient is not in acute exacerbation. Echo (11/19/15): left ventricle is mildly dilated, mild concentric left ventriculer hypertrophy, levt ventricle systolic function is severely impaired. EF: 15-20%, left atrium is mildly dilated, mitral, aortic, tricupsid valves are normal, trace to mild mitral regurgitation and trace tricupsid regurgitation Echo (05/07/16): normal LV systole function, diasytolic dysfunction, dilated LA Coreg 6.25mg PO bid Lisinopril 10mg PO daily Chorthalidone 25mg PO daily Crestor 5mg PO qHS Patient is off aspirin; patient is currently here for alcohol detox. Cardiology (Dr. Yañez) on board-->patient is pending lifevest for sudden cardiac prophylaxis; Life vest requires repeat echocardiogram. Awaiting repeat echocardiogram Fasting Lipid Panel: elevated total cholestrol; elevated LDL; and elevated HDL ( cardioprotective) [id number] Patient requesting work restriction note; advised as per cardiology, but also noted patient needs to establish care with primary care doctor for further monitoring once stabilized Thyroid studies within normal 2) Transaminitis Mild transaminitis Patient is on statin, monitor LFTs while on statin Hepatitis panel is negative Ab US (05/07/16): hypoechoic pancreas; patient clinically is not in acute pancreatitis 3) Anemia Chronic H/H stable Iron stores and saturation within normal TIBC is mildly low B12 709 Folate 10.9 Likely due to alcohol effect on bone marrow suppression 4) Hypertension Coreg 6.25mg PO bid Lisinopril 10mg PO daily Chrthalidone 25mg Po daily 5) Hyperlipidemia Crestor 5mg PO HS. Cholesterol 392, LDL 143, and HDL 175 (cardioprotective) Note: Patient is on statin while mild transaminitis; monitor 6) ETOH use disorder Ativan taper (Day 5) PRN Ativan on board Vitamin B1 100mg PO daily Folic 1mg PO daily MVI 1 tab PO daily
[2016-05-07 14:09] VITALS: BP 137/76; PULSE 87; TEMP 98; O2SAT 97
--- NOTE | 2016-05-08 08:25 | PCM.HF ---
Heart Failure Core Measure - Heart Failure Ejection Fraction: 40 % or Greater Left Ventricular Function to be assessed after discharge: No VAUGHN Inhibitor Prescribed: Yes Beta-Radha Prescribed: Carvedilol Contraindication/Reason for not providing: not indicated Angiotensin II Receptor Radha Prescribed: No Contraindication/Reason for not providing: not AnticoagulationTherapy for Atrial Fibrillation/Atrialflutter: No Contraindication/Reason for not providing: not indicated Aldosterone Antagonist Prescribed: No Contraindication/Reason for not providing: not indicated Hydralazine Nitrate Prescribed: No Contraindication/Reason for not providing: not indicated Implantable Cardioverter Defibrillator Therapy: No Contraindication/Reason for not providing: not indicated Cardiac Resynchronization Therapy Prescribed: No Contraindication/Reason for not providing: not indicated - Follow up Follow Up Date (must be within 7 days from discharge): 05/15/16 Follow Up Time: 09:00
== END 2016-05-07 14:05 | disposition home or self-care (01) ==
LOC: C.ER 08:49 → C.7D 17:00
PROVIDERS: ADMIT Psychiatry & Neurology Psychiatry; ATTEND Psychiatry & Neurology Psychiatry
PROC: HZ2ZZZZ Detoxification Services for Substance Abuse Treatment (ICD-10-PCS; principal; 2016-05-02)
PROC: HZ46ZZZ Group Counseling for Substance Abuse Treatment, Psychoeducation (ICD-10-PCS; 2016-05-02)
PROC: HZ59ZZZ Individual Psychotherapy for Substance Abuse Treatment, Supportive (ICD-10-PCS; 2016-05-02)
DX: F10.230 Alcohol dependence with withdrawal, uncomplicated (principal); I11.0 Hypertensive heart disease with heart failure; I50.9 Heart failure, unspecified; I42.0 Dilated cardiomyopathy; I34.1 Nonrheumatic mitral (valve) prolapse; D64.9 Anemia, unspecified; F17.210 Nicotine dependence, cigarettes, uncomplicated; I25.10 Atherosclerotic heart disease of native coronary artery without angina pectoris; J45.909 Unspecified asthma, uncomplicated; F41.8 Other specified anxiety disorders; E78.5 Hyperlipidemia, unspecified

== ENCOUNTER 2016-05-16 03:21 | Emergency (ER) | payer MEDICAID, OTHER ==
[2016-05-16 03:21] VITALS: BMI 26.6
--- NOTE | 2016-05-16 03:41 | C.PDOC ---
History Of Present Illness Patient, with a past medical history of asthma, bronchitis, CAD, CHF, pancreatitis, mitral valve prolapse, and hypertension, presents to the ED complaining of palpitations and production of green-kelly sputum for the past few days. Patient denies fever, chills, nausea, vomiting. Time Seen by Provider: 05/16/16 03:38 Chief Complaint (Nursing): Palpitations History Per: Patient History/Exam Limitations: no limitations Onset/Duration Of Symptoms: Days (few) Current Symptoms Are (Timing): Still Present Associated Symptoms: Other Severity: Mild Pain Scale Rating Of: 3 Exacerbating Factor(s): Pos: None Recent travel outside of the [place]: No Additional History Per: Patient Past Medical History Reviewed: Historical Data, Nursing Documentation, Vital Signs Vital Signs: Last Vital Signs Temp 98 F 05/16/16 03:34 Pulse 86 05/16/16 03:34 Resp 20 05/16/16 03:34 BP 147/88 05/16/16 03:34 Pulse Ox 94 L 05/16/16 04:32 - Medical History PMH: Asthma, Bronchitis, CAD, CHF, Depression, HTN, Hypercholesterolemia, Mitral Valve Prolapse, Pancreatitis - [facility] Procedures DETOXIFICATION SERVICES FOR SUBSTANCE ABUSE TREATMENT (05/02/16) GROUP REFRIGERATION ENGINE OPERATOR FOR SUBSTANCE ABUSE TREATMENT, PSYCHOEDUCATION (05/02/16) INDIV PSYCHOTHERAPY FOR SUBSTANCE ABUSE TREATMENT, SUPPORT (05/02/16) INJECT/INFUSE NEC (10/19/14) MEDICATION MANAGEMENT (03/05/15) MEDS MGMT FOR SUBSTANCE ABUSE TREATMENT, OTH REPL MED (03/05/15) Family History: States: Unknown Family Hx - Social History Hx Tobacco Use: Yes Hx Alcohol Use: Yes Hx Substance Use: Yes - Immunization History Hx Tetanus Toxoid Vaccination: No Hx Influenza Vaccination: No Hx Pneumococcal Vaccination: No Review Of Systems Constitutional: Negative for: Fever, Chills Cardiovascular: Positive for: Palpitations Gastrointestinal: Negative for: Nausea, Vomiting Physical Exam - Physical Exam Appears: Non-toxic, No Acute Distress Skin: Warm, Dry Head: Atraumatic, Normacephalic Eye(s): bilateral: PERRL, EOMI Oral Mucosa: Moist Neck: Supple Chest: Symmetrical Cardiovascular: Rhythm Regular Respiratory: No Rales, Rhonchi (scattered), No Wheezing, Other (speaking in complete sentences) Gastrointestinal/Abdominal: Soft, No Tenderness, No Guarding, No Rebound Back: No CVA Tenderness Extremity: Bilateral: Atraumatic, Normal Color And Temperature Neurological/Psych: Oriented x3 Gait: Steady ED Course And Treatment - Laboratory Results Result Diagrams: 05/16/16 04:34 05/16/16 05:32 ECG: Interpreted By Me, Viewed By Me ECG Rhythm: Sinus Rhythm (72), Nonspecific Changes O2 Sat by Pulse Oximetry: 94 Pulse Ox Interpretation: Normal - Radiology CXR: Interpreted by Me, Viewed By Me CXR Interpretation: Yes: Other (unchanged from 03/22/16). No: Infiltrates, Fracture, Pnemothorax Progress Note: Plan: Ecotrin, Labs, EKG Reevaluation Time: 05:50 Reassessment Condition: Improved Disposition Counseled Patient/Family Regarding: Studies Performed, Diagnosis, Need For Followup - Disposition Referrals: Kirill Powell MD [Staff Provider] - Disposition: HOME/ ROUTINE Disposition Time: 03:47 Condition: FAIR Prescriptions: Albuterol HFA [Ventolin HFA 90 mcg/actuation (8 g)] 2 puff IH [id number] #1 puff Azithromycin [Zithromax Tri-Theodore] 500 mg PO DAILY #1 tablet Instructions: Acute Bronchitis (ED) - Clinical Impression Clinical Impression: Bronchitis - Scribe Statement The provider has reviewed the documentation as recorded by the Scribe Melanie Laird Provider Attestation: All medical record entries made by the Scribe were at my direction and personally dictated by me. I have reviewed the chart and agree that the record accurately reflects my personal performance of the history, physical exam, medical decision making, and the department course for this patient. I have also personally directed, reviewed, and agree with the discharge instructions and disposition.
[2016-05-16 03:44] VITALS: TEMP 98; O2SAT 94
[2016-05-16] MEDS ORDERED: Aspirin 325 mg EC Tablets PO STA (03:47)
[2016-05-16] MEDS ORDERED: Aspirin 325 mg EC Tablets PO ONE (04:33)
[2016-05-16 04:38] LABS: BASO # 0.2 K/uL (0.0-0.2); BASO % 2.8 % (0.0-2.0); EOS % 0.7 % (0.0-4.0); HEMATOCRIT 35.6 % (35.0-51.0); LYMPH # 1.2 K/uL (1.0-4.3); LYMPH % 19.6 % (20.0-40.0); MEAN CELL VOLUME 84.5 fL (80.0-94.0); MEAN CORPUSCULAR HEMOGLOBIN 27.4 pg (27.0-31.0); MEAN CORPUSCULAR HGB CONC 32.4 g/dL (33.0-37.0); MEAN PLATELET VOLUME 8.3 fL (7.2-11.7); MONO # 0.3 K/uL (0.0-0.8); MONO % 4.7 % (0.0-10.0); NRBC % 0.1 % (0.0-2.0); RED CELL DISTRIBUTION WIDTH 16.8 % (11.5-14.5); WHITE BLOOD COUNT 6.1 K/uL (4.8-10.8)
[2016-05-16 05:44] LABS: CHLORIDE 100 mmol/L (98-107); POTASSIUM 4.1 mmol/L (3.6-5.2); SODIUM 141 mmol/L (132-148)
[2016-05-16 05:46] LABS: ALB/GLOB RATIO 1.5 (1.0-2.1); ALKALINE PHOSPHATASE 61 U/L (38-126); AST/SGOT 50 U/L (17-59); CARBON DIOXIDE 26 mmol/L (22-30); GFR AFRICAN-AMERICAN > 60; TOTAL PROTEIN 7.4 g/dL (6.3-8.3)
[2016-05-16 05:47] LABS: ALT/SGPT 35 U/L (21-72); BLOOD UREA NITROGEN 11 mg/dL (9-20); CALCIUM 7.9 mg/dl (8.6-10.4); GLUCOSE,RANDOM 98 mg/dL (75-110)
[2016-05-16 06:08] VITALS: BP 134/72; PULSE 79; RESP 16
--- NOTE | 2016-05-16 11:28 | RAD ---
PROCEDURE: CHEST RADIOGRAPH, 1 VIEW HISTORY: chest pain COMPARISON: Comparison made with prior chest radiograph 03/22/2016 FINDINGS: LUNGS: Technical out right heart Clear. PLEURA: No pneumothorax or pleural fluid seen. CARDIOVASCULAR: Normal. OSSEOUS STRUCTURES: No significant abnormalities. VISUALIZED UPPER ABDOMEN: Normal. OTHER FINDINGS: None. IMPRESSION: No active disease.
--- NOTE | 2016-05-18 16:27 | CARD ---
APPROVED REPORT EKG Measurement Heart [id number] <Conclusion> Normal sinus rhythm with sinus arrhythmia Moderate voltage criteria for LVH, may be normal variant T wave abnormality, consider inferolateral ischemia Prolonged QT Abnormal ECG
== END 2016-05-16 06:46 | disposition home or self-care (01) ==
LOC: C.ER 03:21
DX: J40 Bronchitis, not specified as acute or chronic (principal); Z72.0 Tobacco use

== ENCOUNTER 2017-02-12 02:04 | Emergency (ER) | payer MEDICAID ==
[2017-02-12] MEDS ORDERED: Naloxone 0.4 mg/ml Inj (Adult) IVP ONE ×4 (02:10→02:59)
[2017-02-12] MEDS ORDERED: Sodium Chloride 0.9% 1,000 ML IV ONE (02:31)
[2017-02-12 02:51] LABS: BASO # 0.1 K/uL (0.0-0.2); BASO % 2.1 % (0.0-2.0); EOS % 0.4 % (0.0-4.0); HEMOGLOBIN 12.2 g/dL (12.0-18.0); LYMPH # 2.8 K/uL (1.0-4.3); LYMPH % 41.5 % (20.0-40.0); MEAN CELL VOLUME 89.3 fL (80.0-94.0); MEAN CORPUSCULAR HEMOGLOBIN 29.7 pg (27.0-31.0); MEAN CORPUSCULAR HGB CONC 33.2 g/dL (33.0-37.0); MEAN PLATELET VOLUME 8.4 fL (7.2-11.7); MONO # 0.4 K/uL (0.0-0.8); MONO % 5.9 % (0.0-10.0); NEUT # 3.4 K/uL (1.8-7.0); NEUT % 50.1 % (50.0-75.0); NRBC % 0.1 % (0.0-2.0); RBC 4.12 Mil/uL (4.40-5.90); RED CELL DISTRIBUTION WIDTH 14.9 % (11.5-14.5); WHITE BLOOD COUNT 6.8 K/uL (4.8-10.8)
[2017-02-12] MEDS ORDERED: Naloxone 0.4 mg/ml Inj (Adult) ONE (03:00)
[2017-02-12 03:02] LABS: ALB/GLOB RATIO 1.3 (1.0-2.1); ALBUMIN 4.5 g/dL (3.5-5.0); ALT/SGPT 46 U/L (21-72); AST/SGOT 65 U/L (17-59); BLOOD UREA NITROGEN 9 mg/dL (9-20); CALCIUM 8.7 mg/dl (8.6-10.4); GFR AFRICAN-AMERICAN > 60; GFR NON-AFRICAN AMERICAN > 60
[2017-02-12 03:04] LABS: BARBITURATES, UR NEGATIVE (NEGATIVE); BENZODIAZEPINES, UR NEGATIVE (NEGATIVE); OPIATES, UR NEGATIVE (NEGATIVE); PHENCYCLIDINE, UR NEGATIVE (NEGATIVE)
--- NOTE | 2017-02-12 04:15 | C.PDOC ---
History Of Present Illness 58 year old male is brought to the ED [facility] after being found in [address] passed out. Patient has pin point pupils, was given 2.0 mg narcan intranasal by EMS. Was placed on a NRB by EMS. Upon arrival pulse ox 88% on room air with slurred speech, difficult to arouse, arousbale to painful stimuli. . Patient is given 0.2 more narcan here. Patient is unable to answer further questions. Time Seen by Provider: 02/12/17 02:29 Chief Complaint (Nursing): Substance Abuse History Per: EMS History/Exam Limitations: intoxication Onset/Duration Of Symptoms: Hrs Current Symptoms Are (Timing): Still Present Associated Symptoms: denies: Depression, Suicidal Thoughts, Suicidal Plan Recent travel outside of the [place]: No Additional History Per: EMS Past Medical History Reviewed: Historical Data, Nursing Documentation, Vital Signs Vital Signs: Last Vital Signs Temp 98 F 02/12/17 06:02 Pulse 60 02/12/17 06:02 Resp 12 02/12/17 06:02 BP 148/90 02/12/17 06:02 Pulse Ox 98 02/12/17 06:02 - Medical History PMH: No Chronic Diseases Surgical History: No Surg Hx Family History: States: Unknown Family Hx - Social History Hx Alcohol Use: Yes (alcohol on breath) Hx Substance Use: Yes (pt responded to narcan) Review Of Systems Review Of Systems: ROS cannot be obtained secondary to pt's inabilty to answer questions. Physical Exam - Physical Exam Appears: Non-toxic, Confused, Other (intoxciated ) Skin: Normal Color, Warm, Dry Head: Atraumatic, Normacephalic Eye(s): bilateral: Other (pin point) Nose: No Discharge, No Deformity Teeth: Normal Dentition Gingiva: Normal Appearing Neck: Normal ROM, Supple Chest: Symmetrical Cardiovascular: Rhythm Regular, No Murmur Respiratory: Normal Breath Sounds, No Rales, No Rhonchi, No Wheezing Gastrointestinal/Abdominal: Soft, No Tenderness, No Guarding, No Rebound Extremity: Normal ROM, No Pedal Edema, No Calf Tenderness, No Deformity, No Swelling Neurological/Psych: Other (responds to painful stimuli) ED Course And Treatment - Laboratory Results Result Diagrams: 02/12/17 02:45 02/12/17 02:45 ECG: Interpreted By Me, Viewed By Me ECG Rhythm: Sinus Rhythm Interpretation Of ECG: NSR 64 ND 176 QRS 108 QT 442 QTC 455 no ischemic changes incomplete RBBB Rate From EC O2 Sat by Pulse Oximetry: 98 (On RA) Pulse Ox Interpretation: Normal - CT Scan/US CT head Other Rad Studies (CT/US): Read By Radiologist, Radiology Report Reviewed CT/US Interpretation: EXAM: CT Head Without Intravenous Contrast. CLINICAL HISTORY: 58 years old, male; Pain; Headache and other: Overdose. TECHNIQUE: Axial computed tomography images of the head/brain without intravenous contrast. All CT scans at. this facility use one or more dose reduction techniques, viz.: automated exposure control; ma/kV. adjustment per patient size (including targeted exams where dose is matched to indication; i.e. head); . or iterative reconstruction technique. COMPARISON: No relevant prior studies available. FINDINGS: Brain: Mild atrophy. No intracranial hemorrhage. No mass. No definite edema. Ventricles: No hydrocephalus. Bones/joints: No acute fracture. Soft tissues: Unremarkable. Vasculature: Minimal atherosclerotic disease of intracranial arteries. Sinuses: Scattered minimal mucosal thickening of ethmoid sinuses. Small RIGHT maxillary. retention cyst. Mastoid air cells: No mastoid effusion. Orbits: Unremarkable as visualized. IMPRESSION: 1. No definite acute intracranial abnormality. Acute infarction may be CT occult within first 24 hours. If a focal deficit persists, consider followup CT or MRI for further evaluation. 2. Incidental/non-acute findings are described above. Medical Decision Making Medical Decision Making: Plan: * CT head * CXR * EKG * Narcan 0.2 mg * labs Pt was given multiple doses of narcan 0.2 mg with transient improvement of mental status/ etoh 559. continuous cardiac technologist. pending sobriety. ct head. Disposition - Disposition Disposition Time: 06:56 Condition: FAIR Forms: [employer] (Lao) - Clinical Impression Clinical Impression: Intoxication - Scribe Statement The provider has reviewed the documentation as recorded by the Scribe Bolivar Francisco All medical record entries made by the Scribe were at my direction and personally dictated by me. I have reviewed the chart and agree that the record accurately reflects my personal performance of the history, physical exam, medical decision making, and the department course for this patient. I have also personally directed, reviewed, and agree with the discharge instructions and disposition.
--- NOTE | 2017-02-12 04:35 | CT ---
EXAM: CT Head Without Intravenous Contrast CLINICAL HISTORY: 58 years old, male; Pain; Headache and other: Overdose TECHNIQUE: Axial computed tomography images of the head/brain without intravenous contrast. All CT scans at this facility use one or more dose reduction techniques, viz.: automated exposure control; ma/kV adjustment per patient size (including targeted exams where dose is matched to indication; i.e. head); or iterative reconstruction technique. COMPARISON: No relevant prior studies available. FINDINGS: Brain: Mild atrophy. No intracranial hemorrhage. No mass. No definite edema. Ventricles: No hydrocephalus. Bones/joints: No acute fracture. Soft tissues: Unremarkable. Vasculature: Minimal atherosclerotic disease of intracranial arteries. Sinuses: Scattered minimal mucosal thickening of ethmoid sinuses. Small RIGHT maxillary retention cyst. Mastoid air cells: No mastoid effusion. Orbits: Unremarkable as visualized. IMPRESSION: 1. No definite acute intracranial abnormality. Acute infarction may be CT occult within first 24 hours. If a focal deficit persists, consider followup CT or MRI for further evaluation. 2. Incidental/non-acute findings are described above.
--- NOTE | 2017-02-12 08:35 | RAD ---
PROCEDURE: CHEST RADIOGRAPH, 1 VIEW HISTORY: Overdosed COMPARISON: None available. FINDINGS: LUNGS: Clear. Shallow lung volumes PLEURA: No pneumothorax or pleural fluid seen. CARDIOVASCULAR: Mild cardiomegaly. Aortic knob atherosclerotic vascular calcification OSSEOUS STRUCTURES: No significant abnormalities. VISUALIZED UPPER ABDOMEN: Normal. OTHER FINDINGS: None. IMPRESSION: No acute pulmonary pathology. Bronchovascular markings top-normal. Mild cardiomegaly
[2017-02-12 11:13] VITALS: TEMP 98.4; O2SAT 97
[2017-02-12 12:31] VITALS: BP 105/63; PULSE 77; RESP 12
--- NOTE | 2017-02-13 23:34 | CARD ---
APPROVED REPORT EKG Measurement Heart [id number] [place] [id number] [id number] <Conclusion> Normal sinus rhythm Incomplete right bundle branch Poor R wave progressionblock Borderline ECG
== END 2017-02-12 13:14 | disposition home or self-care (01) ==
LOC: EDBD 02:04 → MERGE 02:04 → C.ER 02:04
DX: F10.129 Alcohol abuse with intoxication, unspecified (principal); Y90.8 Blood alcohol level of 240 mg/100 ml or more
CPT/HCPCS: 70450; 71045; 80053; 80320; 80324; 80345; 80346; 80349; 80353; 80358; 80361; 82948; 83992; 85025; 93005; 96361; 96374; 96376; 99285; J2310; J7040

== ENCOUNTER 2017-03-13 19:59 | Emergency (ER) | payer MEDICAID ==
[2017-03-13 19:59] VITALS: BMI 27.3
--- NOTE | 2017-03-13 21:17 | C.PDOC ---
History Of Present Illness 46 year old male presents to the ED c/o anterior chest wall pain for the past 2 days. Patient denies any injury, fall, trauma, SOB, headache, dizziness. Chief Complaint (Nursing): Chest Pain History Per: Patient History/Exam Limitations: no limitations Onset/Duration Of Symptoms: Days Current Symptoms Are (Timing): Still Present Quality: "Pain" Modifying Factors: None Exacerbating Factors: None Alleviating Factors: None Recent travel outside of the [place]: No Additional History Per: Patient Past Medical History Reviewed: Historical Data, Nursing Documentation, Vital Signs Vital Signs: Last Vital Signs Temp 97.9 F 03/14/17 03:29 Pulse 62 03/14/17 03:29 Resp 16 03/14/17 03:29 BP 135/73 03/14/17 03:29 Pulse Ox 99 03/14/17 04:17 - Medical History PMH: Anxiety, Asthma (as a child), CAD, CHF, Depression, HTN, Hypercholesterolemia, Pancreatitis Denies: Alzheimer's Disease, Anemia, Arthritis, Bipolar Disorder, Bronchitis , Cardia Arrhythmia, COPD, Crohn's Disease, Dementia, Diverticulitis, Emphysema , Fibromyalgia, Fractures, Gastrointestinal Ulcer, Gall Bladder Disease, HIV, Hyperthyroidism, Hypothyroidism, Kidney Stones, Migraine, Mitral Valve Prolapse , Osteoporosis, Paranoia, Parkinson's Disease, Peripheral Edema, Pneumonia, Post Traumatic Stress Disorder, Chronic Kidney Disease, Schizophrenia, Seizures , Sickle Cell Disease, Sexually Transmitted Disease, Sleep Apnea, TIA Surgical History: Coronary Stent Denies: Appendectomy, Cholecystectomy, Pacemaker - [facility] Procedures DETOXIFICATION SERVICES FOR SUBSTANCE ABUSE TREATMENT (05/02/16) GROUP WINE SPECIALIST FOR SUBSTANCE ABUSE TREATMENT, PSYCHOEDUCATION (05/02/16) INDIV PSYCHOTHERAPY FOR SUBSTANCE ABUSE TREATMENT, SUPPORT (05/02/16) INJECT/INFUSE NEC (10/19/14) MEDICATION MANAGEMENT (03/05/15) MEDS MGMT FOR SUBSTANCE ABUSE TREATMENT, OTH REPL MED (03/05/15) Family History: States: Unknown Family Hx, [place] (father of [place] at 22 y/o) - Social History Hx Tobacco Use: Yes Hx Alcohol Use: Yes Hx Substance Use: No - Immunization History Hx Tetanus Toxoid Vaccination: No Hx Influenza Vaccination: No Hx Pneumococcal Vaccination: No Review Of Systems Constitutional: Negative for: Fever, Chills Cardiovascular: Positive for: Chest Pain. Negative for: Palpitations Respiratory: Negative for: Cough, Shortness of Breath Gastrointestinal: Negative for: Nausea, Vomiting, Abdominal Pain Genitourinary: Negative for: Dysuria, Hematuria Skin: Negative for: Rash Neurological: Negative for: Weakness, Numbness Physical Exam - Physical Exam Appears: Non-toxic, No Acute Distress, Other (AOB) Skin: Normal Color, Warm, Dry Head: Atraumatic, Normacephalic Eye(s): bilateral: Normal Inspection Nose: No Discharge, No Deformity Oral Mucosa: Moist Neck: Normal ROM, Supple Chest: Symmetrical, Tenderness (left interscapular ) Cardiovascular: Rhythm Regular, No Murmur Respiratory: Normal Breath Sounds, No Rales, No Rhonchi, No Plerual Rub Gastrointestinal/Abdominal: Soft, No Tenderness, No Guarding, No Rebound Extremity: Normal ROM, No Deformity, No Swelling Neurological/Psych: Oriented x3, Normal Speech, Normal Cognition ED Course And Treatment - Laboratory Results Result Diagrams: 03/13/17 21:40 03/13/17 21:40 ECG: Interpreted By Me, Viewed By Me ECG Rhythm: Sinus Bradycardia, ST/T Changes ECG Interpretation: No Acute Changes, Abnormal Interpretation Of ECG: Sinus tachycardia, flattening of t-wavelateral keads, T- inversion III and AVF O2 Sat by Pulse Oximetry: 99 (ON RA) Pulse Ox Interpretation: Normal - Radiology CXR: Interpreted by Me, Viewed By Me CXR Interpretation: Yes: No Acute Disease, Other (normal chest film.). No: Infiltrates Medical Decision Making Medical Decision Making: Impression : Chest pain Plan: * EKG * Labs * CXR Disposition Counseled Patient/Family Regarding: Diagnosis - Disposition Referrals: [facility] [Outside] Disposition: HOME/ ROUTINE Disposition Time: 05:34 Condition: STABLE Prescriptions: Naproxen 375 mg PO TIDPC #20 tablet Instructions: Abuse of Alcohol (ED), Chest Wall Pain (ED) Forms: [facility] (Macedonian) - POA Present On Arrival: None - Clinical Impression Clinical Impression: Alcohol intoxication, Chest wall pain - Scribe Statement The provider has reviewed the documentation as recorded by the Scribe Bolivar Francisco All medical record entries made by the Scribe were at my direction and personally dictated by me. I have reviewed the chart and agree that the record accurately reflects my personal performance of the history, physical exam, medical decision making, and the department course for this patient. I have also personally directed, reviewed, and agree with the discharge instructions and disposition.
[2017-03-13 21:44] LABS: BASO # 0.1 K/uL (0.0-0.2); BASO % 1.4 % (0.0-2.0); EOS # 0.1 K/uL (0.0-0.7); EOS % 0.9 % (0.0-4.0); HEMOGLOBIN 11.9 g/dL (12.0-18.0); LYMPH # 2.9 K/uL (1.0-4.3); LYMPH % 34.4 % (20.0-40.0); MEAN CELL VOLUME 87.6 fL (80.0-94.0); MEAN CORPUSCULAR HEMOGLOBIN 30.4 pg (27.0-31.0); MEAN CORPUSCULAR HGB CONC 34.7 g/dL (33.0-37.0); MEAN PLATELET VOLUME 8.3 fL (7.2-11.7); MONO # 0.3 K/uL (0.0-0.8); MONO % 3.9 % (0.0-10.0); NEUT # 5.1 K/uL (1.8-7.0); NEUT % 59.4 % (50.0-75.0); NRBC % 0.1 % (0.0-2.0); RBC 3.9 Mil/uL (4.40-5.90); WHITE BLOOD COUNT 8.5 K/uL (4.8-10.8)
[2017-03-13 22:00] LABS: ALB/GLOB RATIO 1.3 (1.0-2.1); ALBUMIN 4.1 g/dL (3.5-5.0); ALT/SGPT 19 U/L (21-72); AST/SGOT 32 U/L (17-59); BLOOD UREA NITROGEN 12 mg/dL (9-20); CALCIUM 8.8 mg/dl (8.6-10.4); GFR AFRICAN-AMERICAN > 60; GFR NON-AFRICAN AMERICAN > 60
[2017-03-14 03:33] VITALS: O2SAT 99
[2017-03-14 05:40] VITALS: BP 122/77; PULSE 75; RESP 18; TEMP 98.1
--- NOTE | 2017-03-14 10:50 | RAD ---
HISTORY: chest pain COMPARISON: Comparison chest 05/16/2016 TECHNIQUE: Chest PA and lateral FINDINGS: LUNGS: No active pulmonary disease. PLEURA: No significant pleural effusion identified. No pneumothorax apparent. CARDIOVASCULAR: Heart size within range of normal however there is a slight left ventricular configuration. OSSEOUS STRUCTURES: Mild multilevel degenerative spondylosis of the thoracic spine. Chronic appearing anterior wedge deformities of a few mid -lower thoracic segments VISUALIZED UPPER ABDOMEN: Normal. OTHER FINDINGS: None. IMPRESSION: No active disease.
== END 2017-03-14 05:40 | disposition home or self-care (01) ==
LOC: C.ER 19:59
DX: R07.89 Other chest pain (principal); F10.129 Alcohol abuse with intoxication, unspecified; Y90.8 Blood alcohol level of 240 mg/100 ml or more; I10 Essential (primary) hypertension; E78.00 Pure hypercholesterolemia, unspecified; F17.210 Nicotine dependence, cigarettes, uncomplicated

== ENCOUNTER 2017-04-19 00:58 | Emergency (ER) | payer MEDICAID ==
[2017-04-19 00:59] VITALS: BMI 27.3
[2017-04-19 01:10] VITALS: RESP 20; TEMP 97.7; O2SAT 97
--- NOTE | 2017-04-19 01:22 | C.PDOC ---
History Of Present Illness Patient came in due to episode of chest pain ealrlier lasted for about 15 min. Presaently pain free. Also history of feeling SOB on exertion. Chief Complaint (Nursing): Chest Pain History Per: Patient History/Exam Limitations: no limitations Onset/Duration Of Symptoms: Mins Current Symptoms Are (Timing): Gone Severity: None Pain Scale Rating Of: 0 Quality: Aching Associated Symptoms: Dyspnea. denies: Nausea, Diaphoresis Alleviating Factors: denies: None, Rest, Leaning Foreward, Other Past Medical History Vital Signs: Last Vital Signs Temp 97.7 F 04/19/17 01:05 Pulse 79 04/19/17 01:15 Resp 20 04/19/17 01:05 BP 154/101 H 04/19/17 01:15 Pulse Ox 97 04/19/17 01:30 - Medical History PMH: Anxiety, Asthma (as a child), CAD, CHF, Depression, HTN, Hypercholesterolemia, Pancreatitis Denies: Alzheimer's Disease, Anemia, Arthritis, Bipolar Disorder, Bronchitis , Cardia Arrhythmia, COPD, Crohn's Disease, Dementia, Diverticulitis, Emphysema , Fibromyalgia, Fractures, Gastrointestinal Ulcer, Gall Bladder Disease, HIV, Hyperthyroidism, Hypothyroidism, Kidney Stones, Migraine, Mitral Valve Prolapse , Osteoporosis, Paranoia, Parkinson's Disease, Peripheral Edema, Pneumonia, Post Traumatic Stress Disorder, Chronic Kidney Disease, Schizophrenia, Seizures , Sickle Cell Disease, Sexually Transmitted Disease, Sleep Apnea, TIA Surgical History: Coronary Stent Denies: Appendectomy, Cholecystectomy, Pacemaker - [facility] Procedures DETOXIFICATION SERVICES FOR SUBSTANCE ABUSE TREATMENT (05/02/16) GROUP PUG MILL OPERATOR FOR SUBSTANCE ABUSE TREATMENT, PSYCHOEDUCATION (05/02/16) INDIV PSYCHOTHERAPY FOR SUBSTANCE ABUSE TREATMENT, SUPPORT (05/02/16) INJECT/INFUSE NEC (10/19/14) MEDICATION MANAGEMENT (03/05/15) MEDS MGMT FOR SUBSTANCE ABUSE TREATMENT, OTH REPL MED (03/05/15) Family History: States: Unknown Family Hx, [place] (father of [place] at 22 y/o) - Social History Hx Tobacco Use: Yes Hx Alcohol Use: Yes Hx Substance Use: No - Immunization History Hx Tetanus Toxoid Vaccination: No Hx Influenza Vaccination: No Hx Pneumococcal Vaccination: No Review Of Systems Constitutional: Negative for: Fever, Chills, Sweats Eyes: Negative for: Pain ENT: Negative for: Ear Pain, Ear Discharge, Nose Pain, Nose Discharge Cardiovascular: Positive for: Chest Pain. Negative for: Palpitations, Orthopnea , Paroxysmal Noc. Dyspnea Respiratory: Negative for: Cough, Hemoptysis Gastrointestinal: Negative for: Nausea, Vomiting, Abdominal Pain Genitourinary: Negative for: Dysuria, Frequency, Incontinence Musculoskeletal: Negative for: Neck Pain, Shoulder Pain, Arm Pain Skin: Negative for: Rash, Lesions Neurological: Negative for: Weakness, Numbness, Incoordination, Change in Speech Psych: Positive for: Other (acute alcohol ingestion). Negative for: Anxiety, Depression, Psychosis, Suicidal ideation, Withdrawal Physical Exam - Physical Exam Appears: No Acute Distress, Other (alcohol on breath) Skin: Normal Color Head: Atraumatic Nose: Normal Throat: Normal Neck: Normal Chest: Symmetrical, No Deformity, No Tenderness, No Ecchymosis, No Subcutaneous Emphysema Cardiovascular: Rhythm Regular Respiratory: Normal Breath Sounds Gastrointestinal/Abdominal: Normal Exam Back: Normal Inspection Extremity: Normal ROM ED Course And Treatment - Laboratory Results Result Diagrams: 04/19/17 01:51 04/19/17 01:51 ECG: Interpreted By Me, Viewed By Me ECG Rhythm: Sinus Rhythm, ST/T Changes ECG Interpretation: No Acute Changes Interpretation Of ECG: NSR. LVH, non-spc ST-T changes, prolonged QT interval, abnormal tracings/ Rate From EC O2 Sat by Pulse Oximetry: 97 Pulse Ox Interpretation: Normal Disposition - Disposition Disposition: ELOPEMENT - ER ONLY Disposition Time: 04:25 Condition: STABLE Forms: [facility] (Georgian) - POA Present On Arrival: None - Clinical Impression Clinical Impression: Chest pain, Alcohol abuse
[2017-04-19 01:32] VITALS: BP 154/101; PULSE 79
[2017-04-19 03:07] LABS: ALB/GLOB RATIO 1.4 (1.0-2.1); ALBUMIN 4.5 g/dL (3.5-5.0); ALT/SGPT 33 U/L (21-72); AST/SGOT 32 U/L (17-59); BLOOD UREA NITROGEN 5 mg/dL (9-20); CALCIUM 9.6 mg/dl (8.6-10.4); GFR AFRICAN-AMERICAN > 60; GFR NON-AFRICAN AMERICAN > 60
[2017-04-19 03:20] LABS: B-TYPE NATRIURETIC PEPTIDE 333 pg/mL (0-450)
[2017-04-19 03:29] LABS: BASO # 0.1 K/uL (0.0-0.2); BASO % 1.2 % (0.0-2.0); EOS # 0.1 K/uL (0.0-0.7); EOS % 1.2 % (0.0-4.0); HEMOGLOBIN 11.1 g/dL (12.0-18.0); LYMPH # 2.2 K/uL (1.0-4.3); LYMPH % 29.4 % (20.0-40.0); MEAN CELL VOLUME 87.3 fL (80.0-94.0); MEAN CORPUSCULAR HEMOGLOBIN 28.9 pg (27.0-31.0); MEAN CORPUSCULAR HGB CONC 33.1 g/dL (33.0-37.0); MEAN PLATELET VOLUME 8.4 fL (7.2-11.7); MONO # 0.5 K/uL (0.0-0.8); MONO % 6.7 % (0.0-10.0); NEUT # 4.7 K/uL (1.8-7.0); NEUT % 61.5 % (50.0-75.0); NRBC % 0.1 % (0.0-2.0); RBC 3.82 Mil/uL (4.40-5.90); RED CELL DISTRIBUTION WIDTH 16.4 % (11.5-14.5); WHITE BLOOD COUNT 7.6 K/uL (4.8-10.8)
--- NOTE | 2017-04-19 08:31 | RAD ---
HISTORY: chest pain COMPARISON: Chest x-ray 03/13/17 TECHNIQUE: Chest PA and lateral FINDINGS: LUNGS: Bilateral hilar prominence. Mild biapical pleural thickening. No focal consolidation. Please note that chest x-ray has limited sensitivity for the detection of pulmonary masses. PLEURA: No significant pleural effusion identified. No definite pneumothorax . CARDIOVASCULAR: Heart size appears within limits. Atherosclerotic calcifications of the aortic knob. OSSEOUS STRUCTURES: Degenerative changes. Chronic appearing anterior wedge deformities of a few mid -lower thoracic segments VISUALIZED UPPER ABDOMEN: Unremarkable. OTHER FINDINGS: None. IMPRESSION: Bilateral hilar prominence. Mild biapical pleural thickening. No focal consolidation effusion
--- NOTE | 2017-04-20 12:19 | CARD ---
APPROVED REPORT EKG Measurement Heart [id number] <Conclusion> Normal sinus rhythm Voltage criteria for left ventricular hypertrophy Nonspecific T wave abnormality Prolonged QT Abnormal ECG
== END 2017-04-19 04:25 | disposition left against medical advice (07) ==
LOC: C.ER 00:58
DX: F10.10 Alcohol abuse, uncomplicated (principal); R07.9 Chest pain, unspecified; Z72.0 Tobacco use

== ENCOUNTER 2017-05-28 09:30 | Observation (INO) | payer MEDICAID ==
[2017-05-28 09:51] VITALS: BMI 27.4
--- NOTE | 2017-05-28 11:02 | CT ---
PROCEDURE: CT scan brain dated 05/28/2017. . HISTORY: Syncope COMPARISON: None available. TECHNIQUE: Axial computed tomography images were obtained through the head/brain without intravenous contrast. Radiation dose: Total exam DLP = 1326.41 mGy-cm. This CT exam was performed using one or more of the following dose reduction techniques: Automated exposure control, adjustment of the mA and/or kV according to patient size, and/or use of iterative reconstruction technique. Note the examination is somewhat limited by motion artifact. FINDINGS: HEMORRHAGE: No acute parenchymal, subarachnoid nor extra-axial hemorrhage. BRAIN: There appears to be some very minimal slightly confluent low-attenuation changes seen within periventricular may represent chronic sequela of small vessel disease. No evidence of large acute infarct. Mild -moderate generalized volume loss. Minor calcified atherosclerotic plaque both cavernous carotid arteries. VENTRICLES: No obstructive hydrocephalus. CALVARIUM: Calvarium appears intact. PARANASAL SINUSES: Mild mucosal thickening seen within in the ethmoid air complex extending superiorly slightly into the inferior margin of the frontal sinus on left side. There is also minor mucosal thickening within the left chamber sphenoid sinus. Apparent old fracture deformity right lamina papyracea. MASTOID AIR CELLS: Unremarkable as visualized. No inflammatory changes. OTHER FINDINGS: None. IMPRESSION: No acute intracranial hemorrhage. . Suspect minimal chronic periventricular white matter ischemic changes. Mild to moderate generalized volume loss Old fracture deformity right lamina papyracea. Mild mucoperiosteal inflammatory changes within the aforementioned paranasal sinuses.
[2017-05-28 11:28] LABS: BASO # 0.2 K/uL (0.0-0.2); BASO % 2.6 % (0.0-2.0); EOS # 0.2 K/uL (0.0-0.7); EOS % 2.6 % (0.0-4.0); HEMOGLOBIN 12.1 g/dL (12.0-18.0); LYMPH # 1.5 K/uL (1.0-4.3); LYMPH % 25.1 % (20.0-40.0); MEAN CELL VOLUME 86.9 fL (80.0-94.0); MEAN CORPUSCULAR HEMOGLOBIN 28.9 pg (27.0-31.0); MEAN CORPUSCULAR HGB CONC 33.2 g/dL (33.0-37.0); MEAN PLATELET VOLUME 8.5 fL (7.2-11.7); MONO # 0.2 K/uL (0.0-0.8); MONO % 2.8 % (0.0-10.0); NEUT # 3.9 K/uL (1.8-7.0); NEUT % 66.9 % (50.0-75.0); RBC 4.19 Mil/uL (4.40-5.90); RED CELL DISTRIBUTION WIDTH 16.9 % (11.5-14.5); WHITE BLOOD COUNT 5.9 K/uL (4.8-10.8)
[2017-05-28 11:36] LABS: INR 0.9; PROTHROMBIN TIME 10.3 SECONDS (9.7-12.2)
[2017-05-28 11:36] LABS: BARBITURATES, UR NEGATIVE (NEGATIVE); OPIATES, UR NEGATIVE (NEGATIVE); PHENCYCLIDINE, UR NEGATIVE (NEGATIVE)
[2017-05-28 11:46] LABS: ALB/GLOB RATIO 1.1 (1.0-2.1); ALBUMIN 4.5 g/dL (3.5-5.0); ALT/SGPT 46 U/L (21-72); AST/SGOT 62 U/L (17-59); BLOOD UREA NITROGEN 12 mg/dL (9-20); CALCIUM 8.8 mg/dl (8.6-10.4); GFR AFRICAN-AMERICAN > 60; GFR NON-AFRICAN AMERICAN > 60
[2017-05-28 11:52] LABS: B-TYPE NATRIURETIC PEPTIDE 25.4 pg/mL (0-450); CK-MB 4.13 ng/mL (0.0-3.38)
[2017-05-28 11:57] LABS: BENZODIAZEPINES, UR POSITIVE (NEGATIVE)
[2017-05-28 12:36] LABS: URINE BILIRUBIN NEGATIVE (NEGATIVE); URINE CLARITY Clear (Clear); URINE COLOR YELLOW (YELLOW); URINE GLUCOSE (UA) NEGATIVE (Normal)
[2017-05-28 12:37] LABS: PH,URINE 5.5 (5.0-8.0); URINE BLOOD MODERATE (NEGATIVE); URINE LEUKOCYTE ESTERASE NEG Leu/uL (Negative); URINE PROTEIN 100 mg/dL (NEGATIVE); URINE UROBILINOGEN 0.2 mg/dL (0.2-1.0)
[2017-05-28 12:38] LABS: SQUAMOUS EPITHIAL 1 /hpf (0-5); URINE BACTERIA RARE (<OCC)
--- NOTE | 2017-05-28 12:46 | RAD ---
Chest x-ray single frontal view History: Syncope. Comparison: 04/19/2017 Findings: No focal infiltrate or effusion. Bibasilar breast shadows. Right hilar prominence. Calcification at the aortic knob. Degenerative changes in the spine. Impression: No focal infiltrate or effusion.
--- NOTE | 2017-05-28 13:34 | C.PDOC ---
History Of Present Illness 46 y/o male, w/PMhx of CHF, presents to the ER for evaluation of a syncopal episode which occurred in the morning today. Patient states that he has been drinking ETOH everyday for the past 30 years. Patient states that he does not feel well and he feels like ," he is going to soon." Chief Complaint (Nursing): Substance Abuse History Per: Patient History/Exam Limitations: no limitations Onset/Duration Of Symptoms: Days Current Symptoms Are (Timing): Gone Past Medical History Reviewed: Historical Data, Nursing Documentation, Vital Signs Vital Signs: Last Vital Signs Temp 97.6 F 05/28/17 09:35 Pulse 78 05/28/17 13:25 Resp 16 05/28/17 13:25 BP 125/79 05/28/17 13:25 Pulse Ox 100 05/28/17 13:45 - Medical History PMH: Anxiety, Asthma (as a child), CAD, CHF, Depression, HTN, Hypercholesterolemia, Pancreatitis Denies: Alzheimer's Disease, Anemia, Arthritis, Bipolar Disorder, Bronchitis , Cardia Arrhythmia, COPD, Crohn's Disease, Dementia, Diabetes, Diverticulitis, Emphysema, Fibromyalgia, Fractures, Gastrointestinal Ulcer, Gall Bladder Disease , Hepatitis, HIV, Hyperthyroidism, Hypothyroidism, Kidney Stones, Migraine, Mitral Valve Prolapse, Osteoporosis, Paranoia, Parkinson's Disease, Peripheral Edema, Pneumonia, Post Traumatic Stress Disorder, Chronic Kidney Disease, Schizophrenia, Seizures, Sickle Cell Disease, Sexually Transmitted Disease, Sleep Apnea, TIA Surgical History: Coronary Stent Denies: Appendectomy, Cholecystectomy, Pacemaker - [facility] Procedures DETOXIFICATION SERVICES FOR SUBSTANCE ABUSE TREATMENT (05/02/16) GROUP RETAIL AREA MANAGER FOR SUBSTANCE ABUSE TREATMENT, PSYCHOEDUCATION (05/02/16) INDIV PSYCHOTHERAPY FOR SUBSTANCE ABUSE TREATMENT, SUPPORT (05/02/16) INJECT/INFUSE NEC (10/19/14) MEDICATION MANAGEMENT (03/05/15) MEDS MGMT FOR SUBSTANCE ABUSE TREATMENT, OTH REPL MED (03/05/15) Family History: States: [place] (father of [place] at 22 y/o) - Social History Hx Tobacco Use: Yes Hx Alcohol Use: Yes Hx Substance Use: No (pt. denies) - Immunization History Hx Tetanus Toxoid Vaccination: No Hx Influenza Vaccination: No Hx Pneumococcal Vaccination: No Review Of Systems Except As Marked, All Systems Reviewed And Found Negative. Constitutional: Negative for: Fever, Chills Neurological: Positive for: Other (syncopal episode ( currently resolved)). Negative for: Dizziness Physical Exam - Physical Exam Appears: No Acute Distress, Other (awake, alert) Skin: Normal Color, Warm, Dry Head: Atraumatic, Normacephalic Eye(s): bilateral: Normal Inspection Nose: Normal Oral Mucosa: Moist, Other (ETOH on breath) Neck: Supple Chest: Symmetrical Cardiovascular: Rhythm Regular Respiratory: Normal Breath Sounds, No Rales, No Rhonchi, No Wheezing Extremity: Normal ROM Neurological/Psych: Oriented x3, Normal Speech ED Course And Treatment - Laboratory Results Result Diagrams: 05/28/17 11:12 05/28/17 11:12 ECG: Interpreted By Me, Viewed By Me ECG Rhythm: Sinus Rhythm Interpretation Of ECG: NSR with prolonged QT interval Rate From EC O2 Sat by Pulse Oximetry: 100 (RA) Pulse Ox Interpretation: Normal - Other Rad CXR X-Ray: Viewed By Me, Read By Radiologist Interpretation: Chest x-ray single frontal view. History: Syncope. Comparison : 04/19/2017. Findings: No focal infiltrate or effusion. Bibasilar breast shadows. Right hilar prominence. Calcification at the aortic knob. Degenerative changes in the spine. Impression: No focal infiltrate or effusion. - CT Scan/US CT-Head Other Rad Studies (CT/US): Read By Radiologist, Radiology Report Reviewed CT/US Interpretation: PROCEDURE: CT scan brain dated 05/28/2017. . HISTORY: Syncope. COMPARISON: None available. TECHNIQUE: Axial computed tomography images were obtained through the head/brain without intravenous contrast. Radiation dose: Total exam DLP = 1326.41 mGy-cm. This CT exam was performed using one or more of the following dose reduction techniques: Automated exposure control, adjustment of the mA and/or kV according to patient size, and/ or use of iterative reconstruction technique. Note the examination is somewhat limited by motion artifact. FINDINGS: HEMORRHAGE: No acute parenchymal, subarachnoid nor extra-axial hemorrhage. BRAIN: There appears to be some very minimal slightly confluent low-attenuation changes seen within periventricular may represent chronic sequela of small vessel disease. No evidence of large acute infarct. Mild -moderate generalized volume loss. Minor calcified atherosclerotic plaque both cavernous carotid arteries. VENTRICLES: No obstructive hydrocephalus. CALVARIUM: Calvarium appears intact. PARANASAL SINUSES: Mild mucosal thickening seen within in the ethmoid air complex extending superiorly slightly into the inferior margin of the frontal sinus on left side. There is also minor mucosal thickening within the left chamber sphenoid sinus. Apparent old fracture deformity right lamina papyracea. MASTOID AIR CELLS: Unremarkable as visualized. No inflammatory changes. OTHER FINDINGS: None. IMPRESSION: No acute intracranial hemorrhage. . Suspect minimal chronic periventricular white matter ischemic changes. Mild to moderate generalized volume loss. Old fracture deformity right lamina papyracea. Mild mucoperiosteal inflammatory changes within the aforementioned paranasal sinuses. Progress Note: Labs, UA, CXR, CT-Head ordered and reviewed. UTOX is significant for cocaine. ETOH level was found to be 392. Patient will be admitted to telemetry observation for syncope. - Physician Consult Information Physician Contacted: Joshua Simpson Outcome Of Conversation: accepted pt to Tele obs Disposition - Disposition Disposition: HOSPITALIZED Disposition Time: 14:24 Condition: FAIR Forms: [facility] (Vietnamese) - Clinical Impression Clinical Impression: Alcohol abuse, Drug abuse, Syncope, CHF (congestive heart failure) - PA / MORTGAGE ORIGINATOR / Resident Statement MD/DO has reviewed & agrees with the documentation as recorded. - Scribe Statement The provider has reviewed the documentation as recorded by the Antoniibe Tiki Cruz Provider Attestation All medical record entries made by the Scribe were at my direction and personally dictated by me. I have reviewed the chart and agree that the record accurately reflects my personal performance of the history, physical exam, medical decision making, and the department course for this patient. I have also personally directed, reviewed, and agree with the discharge instructions and disposition. Decision To Admit - Pt Status Changed To: Hospital Disposition Of: Observation - . Bed Request Type: Telemetry Admitting Physician: Joshua Simpson Patient Diagnosis: Alcohol abuse, Drug abuse, Syncope, CHF (congestive heart failure)
[2017-05-28] MEDS ORDERED: Folic Acid 1 MG, Multivitamin (MVI) 10 ML in Dextrose 5% In Water 1,000 ML IV ONE (18:00)
[2017-05-28] MEDS ORDERED: FOLIC ACID IV ONE (20:00)
[2017-05-28] MEDS ORDERED: MULTIVITAMIN IV ONE (20:00)
[2017-05-28] MEDS ORDERED: SODIUM CHLORIDE IV ONE (20:00)
[2017-05-28 22:24] LABS: CK-MB 1.79 ng/mL (0.0-3.38)
--- NOTE | 2017-05-28 22:57 | CP.PCM.HP ---
History of Present Illness - History of Present Illness History of Present Illness: dictated Present on Admission - Present on Admission Any Indicators Present on Admission: No History of DVT/PE: No History of Uncontrolled Diabetes: No Urinary Catheter: No Decubitus Ulcer Present: No Past Patient History - Infectious Disease Hx of Infectious Diseases: None - Tetanus Immunizations Tetanus Immunization: Unknown - Past Medical History & Family History Past Medical History?: Yes - Past Social History Smoking Status: Heavy Smoker > 10 Cigarettes Daily - CARDIAC Hx Cardia Arrhythmia: No Hx Congestive Heart Failure: Yes Hx Hypercholesterolemia: Yes Hx Hypertension: Yes Hx Mitral Valve Prolapse: No Hx Pacemaker: No Hx Peripheral Edema: No - PULMONARY Hx Asthma: Yes (as a child) Hx Bronchitis: No Hx Chronic Obstructive Pulmonary Disease (COPD): No Hx Emphysema: No Hx Pneumonia: No Hx Sleep Apnea: No - NEUROLOGICAL Hx Alzheimer's Disease: No Hx Dementia: No Hx Migraine: No Hx Parkinson's Disease: No Hx Seizures: No Hx Transient Ischemic Attacks (TIA): No - HEENT Hx HEENT Problems: No - RENAL Hx Chronic Kidney Disease: No Hx Kidney Stones: No - ENDOCRINE/METABOLIC Hx Hyperthyroidism: No Hx Hypothyroidism: No - HEMATOLOGICAL/ONCOLOGICAL Hx Anemia: No Hx Human Immunodeficiency Virus (HIV): No Hx Sickle Cell Disease: No - INTEGUMENTARY Hx Dermatological Problems: No - MUSCULOSKELETAL/RHEUMATOLOGICAL Hx Arthritis: No Hx Fractures: No Hx Osteoporosis: No - GASTROINTESTINAL Hx Crohn's Disease: No Hx Diverticulitis: No Hx Gall Bladder Disease: No Hx Pancreatitis: Yes - GENITOURINARY/GYNECOLOGICAL Hx Sexually Transmitted Disorders: No - PSYCHIATRIC Hx Anxiety: Yes Hx Bipolar Disorder: No Hx Depression: Yes Hx Paranoia: No Hx Post Traumatic Stress Disorder: No Hx Schizophrenia: No Hx Substance Use: No (pt. denies) - SURGICAL HISTORY Hx Appendectomy: No Hx Cholecystectomy: No Hx Coronary Stent: Yes - ANESTHESIA Hx Anesthesia: Yes Hx Anesthesia Reactions: No Hx Malignant Hyperthermia: No Meds Allergies/Adverse Reactions: Allergies Allergy/AdvReac Type Severity Reaction Status Date / Time No Known Allergies Allergy Verified 05/24/17 05:34 Results - Vital Signs Recent Vital Signs: Last Vital Signs Temp 98 F 05/28/17 15:45 Pulse 83 05/28/17 15:45 Resp 20 05/28/17 15:45 BP 167/97 H 05/28/17 22:02 Pulse Ox 100 05/28/17 18:47 - Labs Result Diagrams: 05/28/17 11:12 05/28/17 11:12 Labs: Laboratory Results - last 24 hr 05/28/17 05/28/17 05/28/17 09:54 11:12 11:12 WBC 5.9 RBC 4.19 L Hgb 12.1 Hct 36.4 MCV 86.9 MCH 28.9 MCHC 33.2 RDW 16.9 H Plt Count 382 MPV 8.5 Neut % (Auto) 66.9 Lymph % (Auto) 25.1 [place] % (Auto) 2.8 Eos % (Auto) 2.6 Baso % (Auto) 2.6 H Neut # (Auto) 3.9 Lymph # (Auto) 1.5 [place] # (Auto) 0.2 Eos # (Auto) 0.2 Baso # (Auto) 0.2 PT 10.3 INR 0.9 APTT 29 Sodium Potassium Chloride Carbon Dioxide Anion Gap BUN Creatinine Est GFR ( Amer) Est GFR (Non-Af Amer) POC Glucose (mg/dL) 84 Random Glucose Calcium Total Bilirubin AST ALT Alkaline Phosphatase Total Creatine Kinase CK-MB (Mass) Troponin I NT-Pro-B Natriuret Pep Total Protein Albumin Globulin Albumin/Globulin Ratio Urine Color Urine Clarity Urine pH Ur Specific [place] Urine Protein Urine Glucose (UA) Urine Ketones Urine Blood Urine Nitrate Urine Bilirubin Urine Urobilinogen Ur Leukocyte Esterase Urine WBC (Auto) Urine RBC (Auto) Ur Squamous Epith Cells Urine Bacteria Urine Opiates Screen Urine Methadone Screen Ur Barbiturates Screen Ur Phencyclidine Scrn Ur Amphetamines Screen U Benzodiazepines Scrn U Oth Cocaine Metabols U Cannabinoids Screen Alcohol, Quantitative 05/28/17 05/28/17 05/28/17 11:12 11:15 11:15 WBC RBC Hgb Hct MCV MCH MCHC RDW Plt Count MPV Neut % (Auto) Lymph % (Auto) [place] % (Auto) Eos % (Auto) Baso % (Auto) Neut # (Auto) Lymph # (Auto) [place] # (Auto) Eos # (Auto) Baso # (Auto) PT INR APTT Sodium 149 H Potassium 4.1 Chloride 106 Carbon Dioxide 25 Anion Gap 22 H BUN 12 Creatinine 0.8 Est GFR ( Amer) > 60 Est GFR (Non-Af Amer) > 60 POC Glucose (mg/dL) Random Glucose 83 Calcium 8.8 Total Bilirubin 0.6 AST 62 H D ALT 46 Alkaline Phosphatase 70 Total Creatine Kinase 551 H CK-MB (Mass) 4.13 H Troponin I < 0.0120 NT-Pro-B Natriuret Pep 25.4 Total Protein 8.5 H Albumin 4.5 Globulin 4.0 H Albumin/Globulin Ratio 1.1 Urine Color Yellow Urine Clarity Clear Urine pH 5.5 Ur Specific [place] 1.030 Urine Protein 100 Urine Glucose (UA) Negative Urine Ketones Trace Urine Blood Moderate Urine Nitrate Negative Urine Bilirubin Negative Urine Urobilinogen 0.2 Ur Leukocyte Esterase Neg Urine WBC (Auto) 2 Urine RBC (Auto) 4 H Ur Squamous Epith Cells 1 Urine Bacteria Rare Urine Opiates Screen Negative Urine Methadone Screen Negative Ur Barbiturates Screen Negative Ur Phencyclidine Scrn Negative Ur Amphetamines Screen Negative U Benzodiazepines Scrn Positive U Oth Cocaine Metabols Positive H U Cannabinoids Screen Negative Alcohol, Quantitative 392 H 05/28/17 21:56 WBC RBC Hgb Hct MCV MCH MCHC RDW Plt Count MPV Neut % (Auto) Lymph % (Auto) [place] % (Auto) Eos % (Auto) Baso % (Auto) Neut # (Auto) Lymph # (Auto) [place] # (Auto) Eos # (Auto) Baso # (Auto) PT INR APTT Sodium Potassium Chloride Carbon Dioxide Anion Gap BUN Creatinine Est GFR ( Amer) Est GFR (Non-Af Amer) POC Glucose (mg/dL) Random Glucose Calcium Total Bilirubin AST ALT Alkaline Phosphatase Total Creatine Kinase 413 H CK-MB (Mass) 1.79 Troponin I < 0.0120 NT-Pro-B Natriuret Pep Total Protein Albumin Globulin Albumin/Globulin Ratio Urine Color Urine Clarity Urine pH Ur Specific [place] Urine Protein Urine Glucose (UA) Urine Ketones Urine Blood Urine Nitrate Urine Bilirubin Urine Urobilinogen Ur Leukocyte Esterase Urine WBC (Auto) Urine RBC (Auto) Ur Squamous Epith Cells Urine Bacteria Urine Opiates Screen Urine Methadone Screen Ur Barbiturates Screen Ur Phencyclidine Scrn Ur Amphetamines Screen U Benzodiazepines Scrn U Oth Cocaine Metabols U Cannabinoids Screen Alcohol, Quantitative
--- NOTE | 2017-05-29 02:51 | HP ---
CHIEF COMPLAINT: Altered mental status, syncopal attack. HISTORY OF PRESENT ILLNESS: A 46-year-old male with history of congestive heart failure, alcoholic abuse, history of alcoholism in the past and multiple episodes of intoxication, possible alcoholic cardiomyopathy, congestive heart failure, brought him to the emergency room for an episode of syncopal attack happened in the morning. The patient was drinking more than 30 years, he continues to drink heavily. The patient stated that he does not feel well. He is feeling like he is going to because of not drinking and he had a significant amount of vodka this morning and he was noted to be drowsy and sleepy. According to the patient, he was drinking significant amount and friend called the ambulance and brought him to the emergency room. In the emergency room, the patient was mostly sleepy, but in the floor during my examination, he was more awake, alert and comfortable. He was complaining of minimal shaking and shivering and he wanted to have Librium because if he does not take the Librium he is feeling like he is going to get withdrawal symptoms. The patient in the past had a multiple withdrawal episodes also. Currently, he is also having some minimal chest discomfort, palpitation and dizziness. Currently, he is being monitored also. He does not have any vomiting. No diarrhea noted. PAST MEDICAL HISTORY: Alcoholic abuse, alcoholic intoxication, congestive heart failure, possible alcoholic cardiomyopathy. ALLERGIES: NO KNOWN DRUG ALLERGIES. PERSONAL HISTORY: The patient is a heavy smoker. He is also alcoholic and also has a history of drug abuse. He was drinking significant amount of alcohol recently. He also had a history of heart failure, CAD, history of depression, history of alcoholic pancreatitis. In the past , the patient has attempted multiple detox services. FAMILY HISTORY: Significant for [place]. Father recently. REVIEW OF SYSTEMS: Complaining of chest discomfort. No nausea, palpitations. Also complaining of some discomfort in the left shoulder region, nausea noted, but no vomiting present. The patient denied any diarrhea. PHYSICAL EXAMINATION: GENERAL: On examination, mild tremor noted. Mild tachycardia. CHEST: Bilateral good air entry. No wheezing or rales noted. HEART: Regular heart sounds. ABDOMEN: Nontender abdomen. EXTREMITIES: No pedal edema. [place] ROUTEM[place]: Alert, awake, and oriented x3. No functional or neurological deficits. LABORATORY DATA: Reviewed; sodium 149, potassium 4.1, elevated anion gap noted. BUN and creatinine is normal. Liver enzymes minimally elevated. CPK 551 improved to 413. CBC is normal. INR is normal. Urine toxicology positive for cocaine as well as alcoholic level of 392. CAT scan of the head and x-ray of the chest is negative. The patient in the past had echocardiogram showing evidence of ejection fraction of 30%. ASSESSMENT AND RECOMMENDATIONS: Mr. Alfred Barragan is a 46-year-old male with a history of multiple drug abuse, alcoholism, heart disease, congestive heart failure likely alcoholic cardiomyopathy and alcoholic related complications including pancreatitis, hypertension, esophagitis, now admitted with syncopal episode, unclear. The patient is at high risk for alcoholic withdrawal. I explained to the patient in great details about the alcoholism and associated withdrawal symptoms including delirium, seizure activities as well as altered mental status. We will place him on p.o. protocol, alcoholic withdrawal protocol. We will discuss with psychiatrist, closely monitor telemetry la, cardiac enzymes monitoring. Prognosis is very poor if he develops seizure activities. Meanwhile, we will continue to closely watch the patient. We will follow up with the patient. Joshua Simpson MD
[2017-05-29 07:26] LABS: HEMOGLOBIN 10.5 g/dL (12.0-18.0); MEAN CELL VOLUME 85.5 fL (80.0-94.0); MEAN CORPUSCULAR HEMOGLOBIN 28.7 pg (27.0-31.0); MEAN CORPUSCULAR HGB CONC 33.6 g/dL (33.0-37.0); MEAN PLATELET VOLUME 8.7 fL (7.2-11.7); RBC 3.66 Mil/uL (4.40-5.90); RED CELL DISTRIBUTION WIDTH 16.8 % (11.5-14.5); WHITE BLOOD COUNT 7.3 K/uL (4.8-10.8)
[2017-05-29 07:39] LABS: ALB/GLOB RATIO 1.2 (1.0-2.1); ALBUMIN 3.8 g/dL (3.5-5.0); ALT/SGPT 33 U/L (21-72); AST/SGOT 49 U/L (17-59); BLOOD UREA NITROGEN 12 mg/dL (9-20); CALCIUM 8.9 mg/dl (8.6-10.4); GFR AFRICAN-AMERICAN > 60; GFR NON-AFRICAN AMERICAN > 60; LIPASE 423 U/L (23-300)
--- NOTE | 2017-05-29 12:51 | PCM.PSYCH ---
Initial Psychiatric Evaluation - Initial Psychiatric Evaluation Type of Admission: Voluntary Legal Status: Capacity Chief Complaint (in patient's own words): "Depressed" History of Present Illness and Precipitating Events: The pt is seen, chart reviewed and case discussed He is known from a detox admission, last year Consult was requested for his alcoholism This is a 46 yo AAM, domiciled, single, on disability He is here for cardiac problems, he has HTN and CHF He reports depressive sxs, insomnia, anxiety but denies SI He also had wdw sxs from alcohol but no longer as he is on detox No drug use Past psych hx: Some outpt treatment for depression Mostly alcohol treatment Medical hx: CHF, HTN family psych hx: Not known Current Medications: Active Medications Generic Name Dose Route Start Last Admin Trade Name Freq PRN Reason Stop Dose Admin Aspirin 81 mg 05/29/17 10:00 05/29/17 10:40 Ecotrin PO 81 mg DAILY BETINA Administration Carvedilol 25 mg 05/28/17 22:00 05/29/17 10:34 Coreg PO 25 mg Q12 BETINA Administration Chlordiazepoxide 25 mg 05/28/17 18:00 05/29/17 06:36 Librium PO 06/01/17 17:59 25 mg Q6 BETINA Administration Taper Chlordiazepoxide 25 mg 05/28/17 17:50 05/28/17 19:31 Librium PO 25 mg Q4H PRN Administration Alcohol Withdrawal Escitalopram Oxalate 10 mg 05/29/17 13:00 Lexapro PO DAILY BETINA Folic Acid 1 mg 05/29/17 10:00 05/29/17 10:41 Folic Acid PO 1 mg DAILY BETINA Administration Haloperidol Lactate 2 mg 05/28/17 17:50 Haldol IM Q8H PRN Agitation Isosorbide Mononitrate 30 mg 05/29/17 10:00 05/29/17 10:40 Imdur Er PO 30 mg DAILY BETINA Administration Lorazepam 1 mg 05/28/17 17:50 05/29/17 10:58 Ativan IVP 1 mg Q4H PRN Administration Symptoms of alcohol withdrawl Losartan Potassium 25 mg 05/29/17 10:00 05/29/17 10:40 Cozaar PO 25 mg DAILY BETINA Administration Pantoprazole Sodium 40 mg 05/28/17 18:00 05/29/17 10:34 Protonix Inj IVP 40 mg DAILY BETINA Administration Rosuvastatin Calcium 20 mg 05/29/17 10:00 Crestor PO DAILY BETINA Spironolactone 25 mg 05/29/17 10:00 05/29/17 10:40 Aldactone PO 25 mg BID BETINA Administration Thiamine HCl 100 mg 05/28/17 18:30 05/29/17 10:35 Vitamin B1 Tab PO 100 mg DAILY BETINA Administration Past Psychiatric History - Past Psychiatric History Previous Treatment History: Intensive Outpatient (at [facility]) Pertinent Medical Hx (Current Medical&Sleep Prob, Allergies): Allergies Allergy/AdvReac Type Severity Reaction Status Date / Time No Known Allergies Allergy Verified 05/24/17 05:34 Pantoprazole [Protonix EC Tab] 40 mg PO DAILY 04/19/17 Aspirin [Ecotrin] 81 mg PO DAILY 30 Days tabec 05/22/17 Atorvastatin [Lipitor] 40 mg PO DAILY #30 tab 05/22/17 Carvedilol [Coreg] 25 mg PO Q12 #60 tab 05/22/17 Folic Acid 1 mg PO DAILY 30 Days tab 05/22/17 Isosorbide Mononitrate [Isosorbide Mononitrate ER] 30 mg PO DAILY #30 tab.er.24h 05/22/17 Spironolactone [Aldactone] 25 mg PO DAILY #30 tab 05/22/17 Review of Systems - Neurological Neurological: Dizziness - Psychiatric Psychiatric: Abnormal Sleep Pattern, Anhedonia, Anxiety, Depression, Difficulty Concentrating. absent: Hallucinations, Homicidal Ideation, Paranoia, Suicidal Ideation Mental Status Examination - Personal Presentation Personal Presentation: Looks older than stated age - Affect Affect: Constricted - Motor Activity Motor Activity: Calm - Reliability in Providing Information Reliability in Providing Information: Good - Speech Speech: Organized - Mood Mood: Depressed, Anxious - Formal Thought Process Formal Thought Process: No Impairment - Cognitive Functions Orientation: Person, Place, Situation, Time Attention/Concentration: Attentive Estimate of Intelligence: Average Judgement: Intact, as evidence by: Insight regarding need for hospitalization Memory: Recent intact, as evidence by: Ability to recall events of the day, Remote intact, as evidenced by: Ability to recall historical events - Risk Risk: Withdrawal, Diminished functioning - Strength & Assets Inventory Strength & Assets Inventory: Cooperative - Limitations Limitations: Other DSM 5 DX - DSM 5 DSM 5 Diagnosis: Alcohol use d/o - severe Major depressive d/o - moderate - Recommended/Plan of Treatment Treatment Recommendations and Plan of Treatment: Continue librium detox Low dose gabapentin to augment Lexapro for depression prn meds Vitamins Support, DC and CBT Refer to [facility] in [place] 33 min
[2017-05-29 15:48] VITALS: RESP 20
--- NOTE | 2017-05-29 21:51 | CP.PCM.PN ---
Subjective - Date & Time of Evaluation Date of Evaluation: 05/29/17 Time of Evaluation: 21:50 - Subjective Subjective: seen in the morning pt calm comfortable but concerned mild tremor noted no chest pain eating ok seen by psychiatrist will continue to watch for DT on libriam ativan will f/u Objective - Vital Signs/Intake and Output Vital Signs (last 24 hours): Temp Pulse Resp BP Pulse Ox 97.9 F 85 20 156/83 H 98 05/29/17 15:47 05/29/17 21:37 05/29/17 21:37 05/29/17 21:38 05/29/17 15:47 Intake and Output: 05/29/17 05/30/17 18:59 06:59 Intake Total 1000 Balance 1000 - Medications Medications: Current Medications Aspirin (Ecotrin) 81 mg PO DAILY [facility] Last Admin: 05/29/17 10:40 Dose: 81 mg Carvedilol (Coreg) 25 mg PO Q12 [facility] Last Admin: 05/29/17 21:38 Dose: 25 mg Chlordiazepoxide (Librium) 25 mg PO TID [facility] PRN Reason: Taper Stop: 06/01/17 17:59 Last Admin: 05/29/17 17:41 Dose: 25 mg Chlordiazepoxide (Librium) 25 mg PO Q4H PRN PRN Reason: Alcohol Withdrawal Last Admin: 05/28/17 19:31 Dose: 25 mg Escitalopram Oxalate (Lexapro) 10 mg PO DAILY [facility] Last Admin: 05/29/17 13:45 Dose: 10 mg Folic Acid (Folic Acid) 1 mg PO DAILY [facility] Last Admin: 05/29/17 10:41 Dose: 1 mg Haloperidol Lactate (Haldol) 2 mg IM Q8H PRN PRN Reason: Agitation Isosorbide Mononitrate (Imdur Er) 30 mg PO DAILY [facility] Last Admin: 05/29/17 10:40 Dose: 30 mg Lorazepam (Ativan) 1 mg IVP Q4H PRN PRN Reason: Symptoms of alcohol withdrawl Last Admin: 05/29/17 10:58 Dose: 1 mg Losartan Potassium (Cozaar) 25 mg PO DAILY [facility] Last Admin: 05/29/17 10:40 Dose: 25 mg Pantoprazole Sodium (Protonix Inj) 40 mg IVP DAILY [facility] Last Admin: 05/29/17 10:34 Dose: 40 mg Quetiapine Fumarate (Seroquel) 100 mg PO HS [facility] Last Admin: 05/29/17 21:39 Dose: 100 mg Rosuvastatin Calcium (Crestor) 20 mg PO HS [facility] Last Admin: 05/29/17 21:38 Dose: 20 mg Spironolactone (Aldactone) 25 mg PO BID [facility] Last Admin: 05/29/17 17:41 Dose: 25 mg Thiamine HCl (Vitamin B1 Tab) 100 mg PO DAILY [facility] Last Admin: 05/29/17 10:35 Dose: 100 mg - Labs Labs: 05/29/17 06:59 05/29/17 06:59 PT 10.3 SECONDS (9.7-12.2) 05/28/17 11:12 INR 0.9 05/28/17 11:12 APTT 29 SECONDS (21-34) 05/28/17 11:12
[2017-05-30 06:40] LABS: BASO # 0.1 K/uL (0.0-0.2); BASO % 1.1 % (0.0-2.0); EOS # 0.2 K/uL (0.0-0.7); EOS % 2.1 % (0.0-4.0); HEMOGLOBIN 10.3 g/dL (12.0-18.0); LYMPH # 1.7 K/uL (1.0-4.3); LYMPH % 18.4 % (20.0-40.0); MEAN CELL VOLUME 85.1 fL (80.0-94.0); MEAN CORPUSCULAR HEMOGLOBIN 28.8 pg (27.0-31.0); MEAN CORPUSCULAR HGB CONC 33.9 g/dL (33.0-37.0); MEAN PLATELET VOLUME 8.6 fL (7.2-11.7); MONO # 0.6 K/uL (0.0-0.8); MONO % 6.7 % (0.0-10.0); NEUT # 6.5 K/uL (1.8-7.0); NEUT % 71.7 % (50.0-75.0); NRBC % 0.1 % (0.0-2.0); RBC 3.56 Mil/uL (4.40-5.90); RED CELL DISTRIBUTION WIDTH 16.5 % (11.5-14.5); WHITE BLOOD COUNT 9.1 K/uL (4.8-10.8)
[2017-05-30 07:09] LABS: ALB/GLOB RATIO 1.2 (1.0-2.1); ALBUMIN 3.7 g/dL (3.5-5.0); ALT/SGPT 30 U/L (21-72); AST/SGOT 35 U/L (17-59); BLOOD UREA NITROGEN 10 mg/dL (9-20); CALCIUM 9.1 mg/dl (8.6-10.4); GFR AFRICAN-AMERICAN > 60; GFR NON-AFRICAN AMERICAN > 60
[2017-05-30 08:07] VITALS: TEMP 98; O2SAT 95
[2017-05-30 08:13] VITALS: PULSE 72
[2017-05-30] MEDS ORDERED: Potassium Chloride 20 mEq/15 ml LIQ UD PO ONE (08:57)
[2017-05-30] MEDS: Magnesium Sulfate 1 gm in D5W 1 GM/100 ML BAG IVPB SCH ×2 (09:00→09:23)
[2017-05-30 09:04] VITALS: BP 152/74
--- NOTE | 2017-05-30 10:11 | CP.PCM.PN ---
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 Patient seen today, denies any chest pain, sob, dizziness, abdominal pain, N/V/ D , no tremors noted no overnight events reported by RN Objective - Vital Signs/Intake and Output Vital Signs (last 24 hours): Temp Pulse Resp BP Pulse Ox 98 F 72 20 152/74 H 95 05/30/17 07:00 05/30/17 07:05 05/30/17 07:00 05/30/17 09:02 05/30/17 07:00 Intake and Output: 05/30/17 05/30/17 06:59 18:59 Intake Total 300 Output Total 300 Balance 0 - Medications Medications: Current Medications Aspirin (Ecotrin) 81 mg PO DAILY [facility] Last Admin: 05/30/17 09:02 Dose: 81 mg Carvedilol (Coreg) 25 mg PO Q12 [facility] Last Admin: 05/30/17 09:02 Dose: 25 mg Chlordiazepoxide (Librium) 25 mg PO TID [facility] PRN Reason: Taper Stop: 06/01/17 17:59 Last Admin: 05/29/17 17:41 Dose: 25 mg Chlordiazepoxide (Librium) 25 mg PO Q4H PRN PRN Reason: Alcohol Withdrawal Last Admin: 05/28/17 19:31 Dose: 25 mg Escitalopram Oxalate (Lexapro) 10 mg PO DAILY [facility] Last Admin: 05/30/17 09:03 Dose: 10 mg Folic Acid (Folic Acid) 1 mg PO DAILY [facility] Last Admin: 05/30/17 09:03 Dose: 1 mg Haloperidol Lactate (Haldol) 2 mg IM Q8H PRN PRN Reason: Agitation Magnesium Sulfate/Dextrose (Magnesium Sulfate 1 Gm/100 Ml D5w) 1 gm in 100 mls @ 100 mls/hr IVPB Q1H [facility] Stop: 05/30/17 10:59 Last Admin: 05/30/17 09:23 Dose: 100 mls/hr Isosorbide Mononitrate (Imdur Er) 30 mg PO DAILY [facility] Last Admin: 05/30/17 09:03 Dose: 30 mg Lorazepam (Ativan) 1 mg IVP Q4H PRN PRN Reason: Symptoms of alcohol withdrawl Last Admin: 04/20/18 10:58 Dose: 1 mg Losartan Potassium (Cozaar) 50 mg PO DAILY [facility] Pantoprazole Sodium (Protonix Inj) 40 mg IVP DAILY [facility] Last Admin: 05/30/17 09:02 Dose: 40 mg Quetiapine Fumarate (Seroquel) 100 mg PO HS [facility] Last Admin: 05/29/17 21:39 Dose: 100 mg Rosuvastatin Calcium (Crestor) 20 mg PO HS [facility] Last Admin: 05/29/17 21:38 Dose: 20 mg Spironolactone (Aldactone) 25 mg PO BID [facility] Last Admin: 05/30/17 09:03 Dose: 25 mg Thiamine HCl (Vitamin B1 Tab) 100 mg PO DAILY [facility] Last Admin: 05/30/17 09:03 Dose: 100 mg - Labs Labs: 05/30/17 06:30 05/30/17 06:30 PT 10.3 SECONDS (9.7-12.2) 05/28/17 11:12 INR 0.9 05/28/17 11:12 APTT 29 SECONDS (21-34) 05/28/17 11:12 - Constitutional Appears: Well, No Acute Distress - Respiratory Exam Respiratory Exam: Clear to Ausculation Bilateral, NORMAL BREATHING PATTERN - Neurological Exam Neurological Exam: Alert, Awake, Oriented x3 - Psychiatric Exam Psychiatric exam: Normal Mood (CALM, CO OPERATIVE ) Assessment and Plan - Assessment and Plan (Free Text) Assessment: A/P 46 yr old male with pmhx of CAD, CHF, Depression, HTN, Hypercholesterolemia, Pancreatitis, admitted with syncope/ alcohol withdrawal was on librium taper dose and pt clinically improved labs- hypokalemia and hypomagnesimia - replace seen by Dr. Simpson today , stable for discharge home today Seen by Dr. Odell today, detox inpatient offered and patient denied and stated wants to go home as per Dr. Odell patient can be discharged home and continue librium 2 dose today and 1 dose in am Patient counselled regarding alcohol abstain and also alcohol withdrawal symptoms Patient instructed to returns to ED if symptoms returns or any concerning symptoms
--- NOTE | 2017-05-30 10:27 | PCM.HF ---
Heart Failure Core Measure - Heart Failure Ejection Fraction: Less Than 40 % VAUGHN Inhibitor Prescribed: No Contraindication/Reason for not providing: on VAUGHN Beta-Radha Prescribed: Carvedilol Angiotensin II Receptor Radha Prescribed: Yes AnticoagulationTherapy for Atrial Fibrillation/Atrialflutter: No Contraindication/Reason for not providing: no hx of afib Aldosterone Antagonist Prescribed: Yes Hydralazine Nitrate Prescribed: No Contraindication/Reason for not providing: on imdur Implantable Cardioverter Defibrillator Therapy: No Contraindication/Reason for not providing: medical management as per PMD/ pt non complaint Cardiac Resynchronization Therapy Prescribed: No Contraindication/Reason for not providing: NSR/ medical managemetn as per PMD - Follow up Will be discharged to: Home Follow Up Date (must be within 7 days from discharge): 06/02/17 Follow Up Time: 09:00
== END 2017-05-30 10:39 | disposition home or self-care (01) ==
LOC: C.ER 09:30 → C.6T 14:25
PROVIDERS: ADMIT Internal Medicine; ATTEND Internal Medicine
DX: F10.20 Alcohol dependence, uncomplicated (principal); Y90.8 Blood alcohol level of 240 mg/100 ml or more; R55 Syncope and collapse; F19.10 Other psychoactive substance abuse, uncomplicated; F32.1 Major depressive disorder, single episode, moderate; E87.6 Hypokalemia; I11.0 Hypertensive heart disease with heart failure; I25.10 Atherosclerotic heart disease of native coronary artery without angina pectoris; I50.9 Heart failure, unspecified; J45.909 Unspecified asthma, uncomplicated; F41.9 Anxiety disorder, unspecified; E78.00 Pure hypercholesterolemia, unspecified; G47.00 Insomnia, unspecified; Z82.49 Family history of ischemic heart disease and other diseases of the circulatory system; Z95.5 Presence of coronary angioplasty implant and graft
CPT/HCPCS: 36415; 70450; 71045; 80053; 80320; 80324; 80345; 80346; 80349; 80353; 80358; 80361; 81001; 82550; 82553; 82948; 83690; 83735; 83880; 83992; 84100; 84443; 84484; 85025; 85027; 85610; 85730; 99285; C9113; G0378; J2060; J3475; J7030

== ENCOUNTER 2017-06-05 17:14 | Emergency (ER) | payer MEDICAID ==
[2017-06-05 17:14] VITALS: BMI 27.4
--- NOTE | 2017-06-05 18:02 | C.PDOC ---
History Of Present Illness 46 y/o male brought in by ambulance for suspected alcohol intoxication. Patient has multiple visits to the ED with similar presentation in the past. He denies alcohol use but presents with (+) alcohol on breath. No suicidal or homicidal ideation. Time Seen by Provider: 06/05/17 17:42 Chief Complaint (Nursing): Substance Abuse History Per: Patient History/Exam Limitations: intoxication Onset/Duration Of Symptoms: Days Current Symptoms Are (Timing): Still Present Past Medical History Reviewed: Historical Data, Nursing Documentation, Vital Signs Vital Signs: Last Vital Signs Temp 98 F 06/05/17 18:28 Pulse 78 06/05/17 18:28 Resp 18 06/05/17 18:28 BP 136/76 06/05/17 18:28 Pulse Ox 95 06/05/17 18:51 - Medical History PMH: Anxiety, Asthma (as a child), CAD, CHF, Depression, HTN, Hypercholesterolemia, Pancreatitis Denies: Alzheimer's Disease, Anemia, Arthritis, Bipolar Disorder, Bronchitis , Cardia Arrhythmia, COPD, Crohn's Disease, Dementia, Diabetes, Diverticulitis, Emphysema, Fibromyalgia, Fractures, Gastrointestinal Ulcer, Gall Bladder Disease , Hepatitis, HIV, Hyperthyroidism, Hypothyroidism, Kidney Stones, Migraine, Mitral Valve Prolapse, Osteoporosis, Paranoia, Parkinson's Disease, Peripheral Edema, Pneumonia, Post Traumatic Stress Disorder, Chronic Kidney Disease, Schizophrenia, Seizures, Sickle Cell Disease, Sexually Transmitted Disease, Sleep Apnea, TIA Surgical History: Coronary Stent Denies: Appendectomy, Cholecystectomy, Pacemaker - [facility] Procedures DETOXIFICATION SERVICES FOR SUBSTANCE ABUSE TREATMENT (05/02/16) GROUP MANAGER EDUCATIONAL FOR SUBSTANCE ABUSE TREATMENT, PSYCHOEDUCATION (05/02/16) INDIV PSYCHOTHERAPY FOR SUBSTANCE ABUSE TREATMENT, SUPPORT (05/02/16) INJECT/INFUSE NEC (10/19/14) MEDICATION MANAGEMENT (03/05/15) MEDS MGMT FOR SUBSTANCE ABUSE TREATMENT, OTH REPL MED (03/05/15) Family History: States: Unknown Family Hx, [place] (father of [place] at 22 y/o) - Social History Hx Tobacco Use: Yes Hx Alcohol Use: Yes Hx Substance Use: No (pt. denies) - Immunization History Hx Tetanus Toxoid Vaccination: No Hx Influenza Vaccination: No Hx Pneumococcal Vaccination: No Review Of Systems Except As Marked, All Systems Reviewed And Found Negative. Psych: Positive for: Other (alcohol intoxication) Physical Exam - Physical Exam Appears: Non-toxic, No Acute Distress Skin: Normal Color, Warm, Dry Head: Atraumatic, Normacephalic Eye(s): bilateral: Normal Inspection, PERRL, EOMI Oral Mucosa: Moist Chest: Symmetrical Cardiovascular: Rhythm Regular, No Murmur Respiratory: Normal Breath Sounds, No Rales, No Rhonchi, No Wheezing Gastrointestinal/Abdominal: Soft, No Tenderness, No Distention Extremity: Bilateral: Atraumatic, Normal Color And Temperature Neurological/Psych: Oriented x3, Other (AOB, responsive to verbal stimuli) ED Course And Treatment ECG: Interpreted By Me, Viewed By Me ECG Rhythm: Sinus Bradycardia (at 59 bpm with normal intervals, normal axis, LVH , nonspecific T wave changes) O2 Sat by Pulse Oximetry: 95 (RA) Pulse Ox Interpretation: Normal Medical Decision Making Medical Decision Making: Impression: Alcohol Intoxication EKG was performed. Blood sugar is 89. 18:50 Patient ambulating with a steady gait, and is stable for discharge home. Disposition Counseled Patient/Family Regarding: Studies Performed, Diagnosis - Disposition Disposition: HOME/ ROUTINE Disposition Time: 19:00 Condition: STABLE Additional Instructions: follow up with medical clinic in 2 days call to make an appointment take medications as prescribed return to ER if symptoms worsens or progress Instructions: Alcohol Abuse and Alcoholism (DC) Forms: [facility] (Upper Sorbian), General Discharge Instructions - Clinical Impression Clinical Impression: Alcohol abuse - Scribe Statement The provider has reviewed the documentation as recorded by the Scribe (Nory Love) Provider Attestation: All medical record entries made by the Scribe were at my direction and personally dictated by me. I have reviewed the chart and agree that the record accurately reflects my personal performance of the history, physical exam, medical decision making, and the department course for this patient. I have also personally directed, reviewed, and agree with the discharge instructions and disposition.
[2017-06-05 18:29] VITALS: BP 136/76; PULSE 78; RESP 18; TEMP 98
[2017-06-05 18:32] VITALS: O2SAT 95
== END 2017-06-05 19:41 | disposition home or self-care (01) ==
LOC: C.ER 17:14
DX: F10.10 Alcohol abuse, uncomplicated (principal); Y90.9 Presence of alcohol in blood, level not specified

== ENCOUNTER 2017-09-16 15:35 | Inpatient (IN) | payer MEDICAID ==
[2017-09-16 15:35] VITALS: BMI 27.4
--- NOTE | 2017-09-16 16:13 | C.PDOC ---
History Of Present Illness 47 year old male patient presents to the ER requesting a detox for alcohol. Patient states that he "cannot live like this anymore". Patient notes he tried detoxing 3 years ago but failed. He also notes he routinely drink 3 pints a day. Patient was notified that there was no detox beds available for him and he threatened to either "jump off a building, or drink himself to ". Patient denies nausea and vomiting. Time Seen by Provider: 09/16/17 16:04 Chief Complaint (Nursing): Psychiatric Evaluation History Per: Patient History/Exam Limitations: no limitations Onset/Duration Of Symptoms: Hrs Current Symptoms Are (Timing): Still Present Modifying Factor(s): Alcohol Past Medical History Reviewed: Historical Data, Nursing Documentation, Vital Signs Vital Signs: Last Vital Signs Temp 98 F 09/16/17 15:43 Pulse 87 09/16/17 15:43 Resp 18 09/16/17 15:43 BP 152/101 H 09/16/17 15:43 Pulse Ox 95 09/16/17 16:20 - Medical History PMH: Anxiety, Asthma (as a child), CAD, CHF, Depression, HTN, Hypercholesterolemia, Pancreatitis Surgical History: Coronary Stent - [facility] Procedures DETOXIFICATION SERVICES FOR SUBSTANCE ABUSE TREATMENT (05/02/16) GROUP MANAGER VOICE FOR SUBSTANCE ABUSE TREATMENT, PSYCHOEDUCATION (05/02/16) INDIV PSYCHOTHERAPY FOR SUBSTANCE ABUSE TREATMENT, SUPPORT (05/02/16) INJECT/INFUSE NEC (10/19/14) MEDICATION MANAGEMENT (03/05/15) MEDS MGMT FOR SUBSTANCE ABUSE TREATMENT, OTH REPL MED (03/05/15) Family History: States: [place] (father of [place] at 22 y/o) - Social History Hx Tobacco Use: Yes Hx Alcohol Use: Yes Hx Substance Use: No (pt. denies) - Immunization History Hx Tetanus Toxoid Vaccination: No Hx Influenza Vaccination: No Hx Pneumococcal Vaccination: No Review Of Systems Constitutional: Positive for: Other (requesting detox for alcohol) Gastrointestinal: Negative for: Nausea, Vomiting Physical Exam - Physical Exam Appears: Well, Non-toxic, No Acute Distress Skin: Normal Color, Warm, Dry Head: Atraumatic, Normacephalic Eye(s): bilateral: Normal Inspection Ear(s): Bilateral: Normal Nose: Normal Oral Mucosa: Moist Neck: Normal ROM, Supple Chest: Symmetrical, No Deformity Cardiovascular: Rhythm Regular Respiratory: Normal Breath Sounds Gastrointestinal/Abdominal: Soft, No Tenderness Back: No CVA Tenderness Extremity: Normal ROM (x4) Neurological/Psych: Oriented x3, No Normal Speech (slurred speech, but patient says it's nml), Normal Motor, Normal Sensation, Normal Reflexes Gait: Steady ED Course And Treatment - Laboratory Results Result Diagrams: 09/16/17 16:56 09/16/17 16:56 Lab Interpretation: No Acute Changes O2 Sat by Pulse Oximetry: 95 (RA) Pulse Ox Interpretation: Normal Progress Note: Patient is medically cleared for detox admission. Medical Decision Making Medical Decision Making: Impression:requesting alcohol detox Reassess: Crisis is presently discussing with him. On re-eval, pt is afebrile, hemodynamically stable. Non-toxic. PulseOx 95% on RA. ENT: no acute findings. Uvula midline. Neck: Supple, (-) JVD. Lungs: CTA B/L, BS equal B/L. Abd: Soft, non-tender. Neurologically intact. Disposition - Disposition Disposition: HOSPITALIZED Disposition Time: 18:39 Condition: STABLE Forms: [facility] (H[place]er) - Clinical Impression Clinical Impression: Alcohol abuse, Moderate major depression, single episode - Scribe Statement The provider has reviewed the documentation as recorded by the Ean Tello Do Provider Attestation: All medical record entries made by the Scribe were at my direction and personally dictated by me. I have reviewed the chart and agree that the record accurately reflects my personal performance of the history, physical exam, medical decision making, and the department course for this patient. I have also personally directed, reviewed, and agree with the discharge instructions and disposition.
[2017-09-16 17:01] LABS: WHITE BLOOD COUNT 5.3 K/uL (4.8-10.8)
[2017-09-16 17:09] LABS: HEMOGLOBIN 11.9 g/dL (12.0-18.0); MEAN CELL VOLUME 86.5 fL (80.0-94.0); MEAN CORPUSCULAR HEMOGLOBIN 28.8 pg (27.0-31.0); MEAN CORPUSCULAR HGB CONC 33.3 g/dL (33.0-37.0); MEAN PLATELET VOLUME 8.8 fL (7.2-11.7); RBC 4.14 Mil/uL (4.40-5.90); RED CELL DISTRIBUTION WIDTH 16.4 % (11.5-14.5)
[2017-09-16 17:10] LABS: URINE BILIRUBIN NEGATIVE (NEGATIVE); URINE CLARITY Clear (Clear); URINE COLOR Straw (YELLOW); URINE GLUCOSE (UA) NORMAL (Normal); URINE LEUKOCYTE ESTERASE NEG Leu/uL (Negative); URINE PROTEIN NEGATIVE (NEGATIVE); URINE UROBILINOGEN NORMAL mg/dL (0.2-1.0)
[2017-09-16 17:17] LABS: URINE BLOOD TRACE (NEGATIVE)
[2017-09-16 17:26] LABS: ALB/GLOB RATIO 1.5 (1.0-2.1); ALBUMIN 4.6 g/dL (3.5-5.0); ALT/SGPT 159 U/L (21-72); AST/SGOT 277 U/L (17-59); BLOOD UREA NITROGEN 5 mg/dL (9-20); CALCIUM 8.8 mg/dl (8.6-10.4); GFR AFRICAN-AMERICAN > 60; GFR NON-AFRICAN AMERICAN > 60
[2017-09-16 17:34] LABS: BARBITURATES, UR NEGATIVE (NEGATIVE); BENZODIAZEPINES, UR NEGATIVE (NEGATIVE); OPIATES, UR NEGATIVE (NEGATIVE); PHENCYCLIDINE, UR NEGATIVE (NEGATIVE)
[2017-09-16 18:20] LABS: BASO # 0.1 K/uL (0.0-0.2); EOS # 0.1 K/uL (0.0-0.7); EOS % 1.6 % (0.0-4.0); LYMPH # 2.6 K/uL (1.0-4.3); LYMPH % 50.2 % (20.0-40.0); MONO # 0.5 K/uL (0.0-0.8); MONO % 8.8 % (0.0-10.0); NEUT % 37.4 % (50.0-75.0); NRBC % 0.2 % (0.0-2.0)
--- NOTE | 2017-09-16 21:18 | PCM.BM ---
Treatment Plan Problems - Problems identified on initial assessmt potential for alcohol withdrawal Date Initiated: 09/16/17 Time Initiated: 21:16 Status: Active Treatment assets and liabiliti Patient Liabilities: substance abuse, medical problems - Milieu Protocol Maintain good personal hygiene: daily Encourage regular showers, daily Remind patient to perform daily oral care, daily Assist patient to perform ADL's Conduct patient checks and document Observation sheet: Q15 minutes Maintain personal safety: every shift Educate patient to report safety concerns to staff, every shift Monitor environment for contraband/sharps Medication safety: Monitor for expected outcome, potential side effects: every shift, Assess barriers to learning: every shift, Assess readiness for medication education: every shift
[2017-09-17] MEDS: Multiple Vitamins Tab PO SCH (10:14)
--- NOTE | 2017-09-17 12:52 | PCM.PSYCH ---
Initial Psychiatric Evaluation - Initial Psychiatric Evaluation Type of Admission: Voluntary Legal Status: Capacity Chief Complaint (in patient's own words): "Alcohol" History of Present Illness and Precipitating Events: The pt is seen, chart reviewed and case discussed He is known from a previous detox admission and consult This is a 47 yo AAM, domiciled, single, on disability He drinks more than a fifth of vodka a day and has significant wdw sxs Sometimes adds beer He was in detox 4-5 x in the past, had DTs but no seizures He reports depressive sxs, insomnia, anxiety but denies SI He was enrolled iin [facility] program at some point No drug use Past psych hx: Some outpt treatment for depression ([facility] Mostly alcohol treatment Medical hx: CHF, HTN family psych hx: Sister had schizophrenia Current Medications: Active Medications Generic Name Dose Route Start Last Admin Trade Name Freq PRN Reason Stop Dose Admin Clonidine HCl 0.1 mg 09/16/17 22:25 09/16/17 23:01 Catapres PO 0.1 mg Q4H PRN Administration Symptoms of alcohol withdrawl Folic Acid 1 mg 09/17/17 10:00 09/17/17 10:14 Folic Acid PO 1 mg DAILY BETINA Administration Lorazepam 1 mg 09/16/17 22:25 Ativan PO Q4H PRN Symptoms of alcohol withdrawl Lorazepam 2 mg 09/16/17 22:45 09/17/17 10:14 Ativan PO 09/21/17 22:44 2 mg Q6H BETINA Administration Taper Multivitamins 1 tab 09/17/17 10:00 09/17/17 10:14 Hexavitamin PO 1 tab DAILY BETINA Administration Thiamine HCl 100 mg 09/17/17 10:00 09/17/17 10:14 Vitamin B1 Tab PO 100 mg DAILY BETINA Administration Trazodone HCl 50 mg 09/16/17 22:25 09/16/17 23:01 Desyrel PO 50 mg HS PRN Administration Insomnia Past Psychiatric History - Past Psychiatric History Previous Treatment History: Intensive Outpatient Pertinent Medical Hx (Current Medical&Sleep Prob, Allergies): Allergies Allergy/AdvReac Type Severity Reaction Status Date / Time No Known Allergies Allergy Verified 09/16/17 16:34 Carvedilol [Coreg] 12.5 mg PO DAILY 09/16/17 Hydrochlorothiazide [Microzide] 12.5 mg PO BID 09/16/17 Lisinopril 1 tab PO DAILY 09/16/17 Simvastatin 1 tab PO DAILY 09/16/17 amLODIPine [Norvasc] 10 mg PO DAILY 09/16/17 Review of Systems - Neurological Neurological: Tremor, Weakness - Psychiatric Psychiatric: Abnormal Sleep Pattern, Anhedonia, Anxiety, Depression, Difficulty Concentrating. absent: Hallucinations, Homicidal Ideation, Suicidal Ideation Mental Status Examination - Personal Presentation Personal Presentation: Looks stated age - Affect Affect: Constricted - Motor Activity Motor Activity: Other (tremulous, jittery) - Reliability in Providing Information Reliability in Providing Information: Good - Speech Speech: Organized - Mood Mood: Depressed, Anxious - Formal Thought Process Formal Thought Process: No Impairment - Cognitive Functions Orientation: Person, Place, Situation, Time Sensorium: Drowsy Attention/Concentration: Easily distracted Estimate of Intelligence: Average Judgement: Intact, as evidence by: Insight regarding need for hospitalization Memory: Recent intact, as evidence by: Ability to recall events of the day, Remote intact, as evidenced by: Abilit to recall sig. life events - Risk Risk: Withdrawal, Diminished functioning - Strength & Assets Inventory Strength & Assets Inventory: Cooperative - Limitations Limitations: Living alone DSM 5 DX - DSM 5 DSM 5 Diagnosis: Alcohol withdrawal Alcohol use d/o - severe Major depressive d/o - severe - Recommended/Plan of Treatment Treatment Recommendations and Plan of Treatment: Ativan taper Gabapentin to augment Lexapro for depression, dose will be increase q2 days prn meds Vitamins Support, [place] and CBT Attend groups Refer to [facility] in [place] or rehab Consider topmax (cannot use naltrexone due to liver) Cardio meds to continue 33 min Projected ELOS: 5-6 days Prognosis: good w treatment - Smoking Cessation Smoking Cessation Initiated: Yes
[2017-09-17] MEDS: Pantoprazole 20 mg EC Tab PO SCH (13:32)
[2017-09-18] MEDS: Pantoprazole 20 mg EC Tab PO SCH (10:01)
[2017-09-18] MEDS: Multiple Vitamins Tab PO SCH (10:01)
--- NOTE | 2017-09-18 11:46 | PCM.PYCHPN ---
Psychiatric Progress Note - Psychiatric Progress Note Patient seen today, length of contact: 15 mins Patient Chief Complaint: "I feel weak and shaky" Problems Identified/Issues Discussed: Patient seen and evaluated. Chart reviewed and case discussed with staff. Patient states he feels weak and tremulous. He states he feels anxious and depressed but denies suicidal or homicidal thoughts. He states he is simply tired currently. He states he was able to sleep well, but reports his appetite is decreased. He states he wishes he could be outside with his friends. He is currently on fall precautions since he has very unsteady gait. Symptoms are improved from before, however patient needs times to stabilize. Support given, psychoeducation provided. Medication Change: Yes (meds change daily with detox) Medical Record Reviewed: Yes Mental Status Examination - Cognitive Function Orientation: Person, Place, Situation, Time Memory: Impaired Attention: WNL Concentration: WNL Association: WNL Fund of Knowledge: WNL - Mood Mood: Depressed, Anxious - Affect Affect: Constricted - Speech Speech: Appropriate - Formal Thought Process Formal Thought Process: No Impairment - Suicidal Ideation Suicidal Ideation: No - Homicidal Ideation Homicidal Ideation: No Goal/Treatment Plan - Goal/Treatment Plan Need for Continued Stay: Discharge may exacerbated symptoms, Severe functional impairment Progress Toward Problem(s) and Goals/Treatment Plan: Alcohol withdrawal Alcohol use disorder, severe Major depressive disorder - severe Ativan taper Gabapentin 100mg po TID Lexapro 5mg for depression, dose will be increase q2 days seroquel 100mg PO hs prn meds Vitamins Support, [place] and CBT Attend groups Refer to [facility] in [place] or rehab Consider topamax (cannot use naltrexone due to liver) Cardio meds to continue Case discussed with Dr. Stu Harrison
[2017-09-18 16:30] VITALS: RESP 18
[2017-09-18 18:43] VITALS: BP 159/107; PULSE 82; TEMP 98.6; O2SAT 96
--- NOTE | 2017-09-20 23:56 | CARD ---
APPROVED REPORT Date of service: 09/16/2017 EKG Measurement Heart [id number] <Conclusion> Normal sinus rhythm Minimal voltage criteria for LVH, may be normal variant Nonspecific T wave abnormality Prolonged QT Abnormal ECG
== END 2017-09-18 21:11 | disposition left against medical advice (07) | DRG 749 ==
LOC: C.ER 15:35 → C.7D 18:40
PROVIDERS: ADMIT Psychiatry & Neurology Psychiatry; ATTEND Psychiatry & Neurology Psychiatry
PROC: HZ2ZZZZ Detoxification Services for Substance Abuse Treatment (ICD-10-PCS; principal; 2017-09-16)
PROC: HZ52ZZZ Individual Psychotherapy for Substance Abuse Treatment, Cognitive-Behavioral (ICD-10-PCS; 2017-09-16)
PROC: HZ59ZZZ Individual Psychotherapy for Substance Abuse Treatment, Supportive (ICD-10-PCS; 2017-09-16)
PROC: HZ56ZZZ Individual Psychotherapy for Substance Abuse Treatment, Psychoeducation (ICD-10-PCS; 2017-09-16)
PROC: HZ42ZZZ Group Counseling for Substance Abuse Treatment, Cognitive-Behavioral (ICD-10-PCS; 2017-09-16)
PROC: HZ46ZZZ Group Counseling for Substance Abuse Treatment, Psychoeducation (ICD-10-PCS; 2017-09-16)
PROC: GZHZZZZ Group Psychotherapy (ICD-10-PCS; 2017-09-16)
PROC: GZ58ZZZ Individual Psychotherapy, Cognitive-Behavioral (ICD-10-PCS; 2017-09-16)
PROC: GZ56ZZZ Individual Psychotherapy, Supportive (ICD-10-PCS; 2017-09-16)
DX: F10.230 Alcohol dependence with withdrawal, uncomplicated (principal); I11.0 Hypertensive heart disease with heart failure; I50.9 Heart failure, unspecified; Y90.8 Blood alcohol level of 240 mg/100 ml or more; R26.81 Unsteadiness on feet; F32.1 Major depressive disorder, single episode, moderate; Z81.8 Family history of other mental and behavioral disorders; Z87.891 Personal history of nicotine dependence; Z95.5 Presence of coronary angioplasty implant and graft; Z82.49 Family history of ischemic heart disease and other diseases of the circulatory system